=== PATIENT | male | born 1940 | race Caucasian/White ===

== ENCOUNTER → 2021-09-12 14:22 | Outpatient (BNVA) | payer MEDICARE, BC, SELFPAY | PROVIDERS: PCP Internal Medicine; Visit Provider Psychiatry & Neurology Neurology | DX: F09 Unspecified mental disorder due to known physiological condition (principal); D32.9 Benign neoplasm of meninges, unspecified; H93.19 Tinnitus, unspecified ear | CPT/HCPCS: 99212 ==

== ENCOUNTER → 2022-01-03 12:50 | Outpatient (BNVA) | payer MEDICARE, BC, SELFPAY | PROVIDERS: PCP Internal Medicine; Visit Provider Psychiatry & Neurology Neurology | DX: H93.19 Tinnitus, unspecified ear (principal); F09 Unspecified mental disorder due to known physiological condition; D32.9 Benign neoplasm of meninges, unspecified | CPT/HCPCS: 99212 ==

== ENCOUNTER → 2022-04-16 13:37 | Outpatient (BNVA) | payer MEDICARE, BC, SELFPAY | PROVIDERS: PCP Internal Medicine; Visit Provider Psychiatry & Neurology Neurology | DX: F09 Unspecified mental disorder due to known physiological condition (principal); D32.9 Benign neoplasm of meninges, unspecified; H93.19 Tinnitus, unspecified ear; Z79.899 Other long term (current) drug therapy | CPT/HCPCS: 99212 ==

== ENCOUNTER → 2022-05-29 13:32 | Outpatient (BNVA) | payer MEDICARE, BC, SELFPAY | PROVIDERS: PCP Internal Medicine; Visit Provider Psychiatry & Neurology Neurology | DX: F09 Unspecified mental disorder due to known physiological condition (principal); D32.9 Benign neoplasm of meninges, unspecified; H93.19 Tinnitus, unspecified ear | CPT/HCPCS: Q3014 ==

== ENCOUNTER → 2022-07-23 13:47 | Outpatient (BNVA) | payer MEDICARE, BC, SELFPAY | PROVIDERS: PCP Internal Medicine; Visit Provider Psychiatry & Neurology Neurology | DX: F09 Unspecified mental disorder due to known physiological condition (principal); D32.9 Benign neoplasm of meninges, unspecified; H93.19 Tinnitus, unspecified ear | CPT/HCPCS: 99212 ==

== ENCOUNTER 2023-12-23 10:06 | Outpatient (REF) | payer MEDICARE, BC, SELFPAY ==
[2023-12-23 11:46] LABS: Erythrocyte Sedimentation Rate 10 MM/HR (0-15)
[2023-12-23 11:49] LABS: Anion Gap 12 (12-20); Blood Urea Nitrogen 35 mg/dL (9-16); Calcium 9.2 mg/dL (8.4-10.2); Carbon Dioxide 28 mmol/L (22-29); Chloride 106 mmol/L (96-108); Estimated Glomerular Filt Rate > 60; Glucose Random 79 mg/dL (60-115); Potassium 4.6 mmol/L (3.3-5.1); Sodium 141 mmol/L (135-145)
[2023-12-23 11:58] LABS: Syphilis Screen Nonreactive (Nonreactive)
[2023-12-25 06:58] LABS: Lyme Abs Screen <0.90 index
== END 2023-12-23 10:07 | disposition home or self-care (01) ==
LOC: HO.LAB 10:06
PROVIDERS: Visit Provider Psychiatry & Neurology Neurology
DX: G93.40 Encephalopathy, unspecified (principal)
CPT/HCPCS: 36415; 80048; 82607; 82746; 85652; 86617; 86618; 86780

== ENCOUNTER 2024-02-09 07:42 | Outpatient (REF) | payer MEDICARE, BC, SELFPAY ==
--- NOTE | ~2024-02-09 | MR_ITS ---
EXAMINATION: MR BRAIN WITHOUT AND WITH CONTRAST CLINICAL INFORMATION: Encephalopathy COMPARISON: None available. TECHNIQUE: Multiplanar, multisequence MRI of the brain was obtained before and after the intravenous administration of 7 mL of Gadavist. FINDINGS: There is a homogeneously enhancing extra-axial mass along the left aspect of the falx measuring 8 x 6 x 8 mm (AP x TV x CC). Mild demonstrates diffuse susceptibility artifact compatible with calcifications. No intra-axial enhancement identified. No acute intracranial hemorrhage or infarct. Scattered and confluent periventricular and deep white matter T2/FLAIR hyperintensities, nonspecific however commonly seen with small vessel ischemic disease. No midline shift or hydrocephalus. No acute extra-axial fluid collections. The osseous structures are unremarkable. The pituitary gland, pineal gland and remaining midline structures are unremarkable. Sequela bilateral lens replacement. Otherwise, no orbital pathology. The paranasal sinuses and mastoid air cells are clear. MR/MR head/brain wo/w con IMPRESSION: -No acute intracranial abnormalities. -Chronic microangiopathy. -Incidentally noted 8mm left parafalcine mass most consistent with a meningioma.
[2024-02-09] MEDS: gadobutroL 7.5 ML VIAL IVPUSH (08:36)
== END 2024-02-09 07:43 | disposition home or self-care (01) ==
LOC: HO.MRI 07:42
PROVIDERS: PCP Internal Medicine; Visit Provider Psychiatry & Neurology Neurology
DX: G93.40 Encephalopathy, unspecified (principal)
CPT/HCPCS: 70553; A9585

== ENCOUNTER 2025-04-12 12:17 | Outpatient (AMB) | payer MEDICARE, BC, SELFPAY ==
--- NOTE | 2025-04-12 12:22 | MHC.OFFVIS ---
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 He also complained of constant head pressure and pain and machinery type noise in his head. He was here with his [id number]. He was doing okay. He still had the noise in his head. Memory was stable. Mood was okay, but he did not like leaving the house. No falls. Sleep was okay. [facility] Medical History Anxiety Delusion of foul odor Dementia Depression Diabetes Hearing loss HTN (hypertension) Hyperlipidemia Meningioma Surgical History No history of previous surgery Family History Father Cancer Mother Diabetes Social History Household Members: Spouse Household Members Other:: Alcohol intake: never Patient Tobacco Use Status: Never used Tobacco Review of Systems Const Denies chills, Denies daytime sleepiness, Denies difficulty sleeping, Denies fatigue, Denies fever(s), Denies frequent falls, Denies headache(s), Denies increased appetite, Denies poor appetite, Denies snoring, Denies weakness, Denies weight gain and Denies weight loss Eyes Denies loss of vision ENT Denies vertigo, Denies dizziness and Denies headache(s) Card Denies chest pain at rest, Denies chest pain with activity, Denies syncope, Denies leg edema and Denies palpitations Resp Denies snoring GI Denies constipation, Denies heartburn, Denies diarrhea and Denies nausea Denies urinary frequency, Denies urinary incontinence and Denies urinary urgency Musc Denies abnormal gait, Denies numbness and Denies tingling Skin/Breast Denies dry skin and Denies rash Neuro Denies abnormal gait, Denies vertigo, Denies dizziness, Denies syncope, Denies frequent falls, Denies headache(s), Denies lack of coordination, Denies loss of vision, Reports memory loss, Denies numbness, Denies restless legs, Denies seizure-like activity, Denies tingling, Denies paresthesias, Denies tremor(s) and Denies weakness Psych Denies anxiety, Denies depression, Denies auditory hallucinations, Reports memory loss, Denies visual hallucinations and Denies suicidal ideation Endo Denies fatigue and Denies palpitations Physical Exam Const Other: General Appearance:? normal, in no acute distress. Skin:? no rashes, no significant birthmarks. Heart:? S1, S2 normal, no murmurs. Lungs:? clear anteriorly and posteriorly. Extremities:? no edema. Psych:? alert, cooperative with exam. Neuro Other: Mental Status:?Alert and awak with normal sp speech, fluency, and flat affect. MMS is 16. He is able to tell me his age, birthday, and that he is here with his [id number]. Cranial Nerves:?Pupils are equal, round and reactive to light. External occular muscles are intact. Visual cheng are full. Face is symmetrical. Facial sensations are normal. Tongue is midline. Palate elevates symmetrically. Shoulder shrugging is normal. Hearing to bedside conversation is normal. Motor Examination:?DTRs are trace with flexor plantars. Sensory Exam:?....? Coordination:?No ataxia,?no titubation.? Gait Exam: Within normal limits. Cerebellar Signs:?[id number] is okay. Extrapyramidal System:?No tremor, rigidity with normal facial expressions.? Pronator Drift:?Not present.? Involuntary Movements:?No tremors seen.? Speech:?Normal.? Results Reviewed Results Reviewed: [place] [facility] [place]: Mild to mod atrophy, minimal MVD, small left interhemispheric meningioma Assessment & Plan Assessment & Plan (1) Alzheimer dementia: Code(s): G30.9 - Alzheimer's disease, unspecified; F02.80 - Dementia in other diseases classified elsewhere, unspecified severity, without behavioral disturbance, psychotic disturbance, mood disturbance, and anxiety Category: Medical Qualifiers: Alzheimer's disease onset: unspecified onset Dementia severity: unspecified severity Dementia behavioral or psychological symptom: unspecified whether behavioral, psychotic, or mood disturbance or anxiety Qualified Code(s): G30.9 - Alzheimer's disease, unspecified; F02.80 - Dementia in other diseases classified elsewhere, unspecified severity, without behavioral disturbance, psychotic disturbance, mood disturbance, and anxiety Plan: Continue memantine 10mg 1 tablet twice a day. Continue sertraline 50mg 1 tablet daily. Continue quetiapine 25mg 1 tablet at bedtime. (2) Tinnitus: Code(s): H93.19 - Tinnitus, unspecified ear Category: Medical Qualifiers: Laterality: unspecified laterality Qualified Code(s): H93.19 - Tinnitus, unspecified ear Plan: Continue clonazepam 0.5mg (3) Meningioma: Code(s): D32.9 - Benign neoplasm of meninges, unspecified Category: Medical Plan . Coding Level of Care Code Est Pt Level 4 (42869) Diagnoses Alzheimer's dementia, unspecified dementia severity, unspecified timing of dementia onset, unspecified whether behavioral, psychotic, or mood disturbance or anxiety G30.9; F02.80 Alzheimer's disease onset: unspecified onset Dementia severity: unspecified severity Dementia behavioral or psychological symptom: unspecified whether behavioral, psychotic, or mood disturbance or anxiety Tinnitus, unspecified laterality H93.19 Laterality: unspecified laterality Meningioma D32.9
--- OUTSIDE RECORDS SUMMARY | 2025-04-12 13:17 | XMS_ITS | Patient Health Record ---
Author Organization [facility] [address] Address [address] [place] [address] Care Team Providers Care Mathematical Engineer Name Role Phone CESAR MCDONNELL Unavailable [phone] JESSICA JUAREZ Unavailable [phone] ADAIRDIXIE Unavailable [phone] KELL CASTRO Unavailable [phone] MIKE RODRIGUEZ Unavailable [phone] Allergies Allergen (clinical drug ingredient) Drug/Non Drug Allergy documented on EMR Reaction Allergy Type Onset Date Status METOPR (uncoded) Unknown Allergy Act judy lisinopril Lisinopril COUGH Drug Allergy Activ e metoprolol Metoprolol Tartrate BACK PAIN AN D KNEE PAIN Drug Allergy Active simvastatin Simvastatin MYALGIA Drug Allergy Act judy Results Component Value Reference Range Notes Hemoglobin [id number] (Not y et reviewed by provider) Interpretation: Performing Lab:[facility], [address] [facility], Phone - [phone], Director - Esequiel Notes/Report: Clinical Information:SRC: Hemoglobin A1c 6.3 4.8-5.6 % . Prediabetes: 5.7 - 6.4 Diabetes: >6.4 Glycemic control for adults with diabetes: <7.0 CBC With Differential/Platel et-[id number] (Not yet reviewed by provider) Interpretation: Performing Lab:[facility], [address] [facility], [place], Phone - [phone], Director - Esequiel Notes/Report: Clinical Information:SRC: WBC 9.9 3.4-10.8 x10E3/uL RBC 4.27 4.14-5.80 x10E6/uL Hemoglobin 13.0 13.0-17.7 g/dL Hematocrit 40.9 37.5-51.0 % MCV 96 79-97 fL MCH 30.4 26.6-33.0 pg MCHC 31.8 31.5-35.7 g/dL RDW 13.7 11.6-15.4 % Platelets 250 150-450 x10E3/uL Neutrophils 67 Not Estab. % Lymphs 20 Not Estab. % Monocytes 6 Not Estab. % Eos 5 Not Estab. % Basos 1 Not Estab. % Neutrophils (Absolute) 6.7 1.4-7.0 x10E3/uL Lymphs (Absolute) 2.0 0.7-3.1 x10E3/uL Monocytes(Absolute) 0.6 0.1-0.9 x10E3/uL Eos (Absolute) 0.5 0.0-0.4 x10E3/uL Baso (Absolute) 0.1 0.0-0.2 x10E3/uL Immature Granulocytes 1 Not Estab. % Immature Grans (Abs) 0.1 0.0-0.1 x10E3/uL C-Reactive Protein, Cardiac- [id number] (Not yet reviewed by provider) Interpretation: Performing Lab:[facility] [place], [address] [place] [address], [place], Phone - [phone], Director - [facility] Notes/Report: Clinical Information:SRC: C-Reactive Protein, Cardiac 62.73 0.00-3.00 mg/L Results confirmed on dilution. Relative Risk for Future Cardiovascular Event Low <1.00 Average 1.00 - 3.00 High >3.00 Mycoplasma pneu. IgG/IgM Abs -[id number] (Not yet reviewed by provider) Interpretation: Performing Lab:[facility] [place], [address] [facility], [place], Phone - [phone], Director - MDJoy Notes/Report: Clinical Information:SRC: M pneumoniae IgG Abs 2726 0-99 U/mL Negative: <100 Indeterminate: 100 - 320 Positive: >320 The reference interval established is intended as a baseline only. Values >100 may indicate a recent infection with Mycoplasma pneumoniae and need to be confirmed either by a positive IgM result and/or an additional specimen drawn 2-4 weeks later showing a significant increase in antibody levels. M pneumoniae IgM Abs <770 0-769 U/mL Negative <770 Clinically significant amount of M. pneumoniae antibody not detected. Low Positive 770 - 950 M. pneumoniae specific IgM presumptively detected. It is recommended that another sample be collected 1-2 weeks later to assure reactivity. Positive >950 Highly significant amount of M. pneumoniae specific IgM antibody detected. Legionella pneumophila Abs.- [id number] Reviewed date:04/12/2025 12:52:58 PM Interpretation: Performing Lab:[address], Phone - [phone], Director - Esequiel Notes/Report: Clinical Information:SRC: Legionella pneumophila Abs. Non Reactive Non Reactive This is a qualitative assay that detects total antibodies (IgG/IgM/IgA) to L. pneumophila Groups 1-6 by EIA method. This assay cannot differentiate between previous exposure/infection and current infection. Serological testing is not recommended for diagnosis. Per current recommendations, culture of lower respiratory secretions and/or the Legionella urinary antigen test should be used for diagnosis of infection with Legionella. Streptococcus pneumoniae Ag- [id number] Reviewed date:04/12/2025 12:53:07 PM Interpretation: Performing Lab:[facility] [address], Phone - [phone], Director - Esequiel Notes/Report: Clinical Information:SRC: Specimen Source Urine Streptococcus pneumoniae Ag Negative Negative Body Fluid Culture, Sterile Not indicated. Organism ID Not indicated. Please Note: [employer] standards require a culture to be performed on CSF specimens submitted for bacterial antigen testing. (CAP [id number]) Urine specimens will not be cultured. UA/M w/rflx Culture, Routine -[id number] Reviewed date:04/12/2025 12:53:07 PM Interpretation: Performing Lab:[facility], Phone - [phone], Director - Esequiel Notes/Report: Clinical Information:SRC: Clinical Information:SRC: Specific [place] 1.019 1.005-1.030 pH 5.5 5.0-7.5 Urine-Color Yellow Yellow Appearance Clear Clear WBC Esterase Negative Negative Protein Trace Negative/Trace Glucose Negative Negative Ketones Negative Negative Occult Blood Negative Negative Bilirubin Negative Negative Urobilinogen,Semi-Qn 0.2 0.2-1.0 mg/dL Nitrite, Urine Negative Negative Microscopic Examination Micr oscopic follows if indicated. Microscopic Examination See below: Micr oscopic was indicated and was performed. Urinalysis Reflex This speci men will not reflex to a Urine Culture. WBC 0-5 0 - 5 /hpf RBC 0-2 0 - 2 /hpf Epithelial Cells (non renal) 0-10 0 - 10 /hpf Casts None seen None seen /lpf Bacteria None seen None seen/Few CBC/Diff Ambiguous Default Reviewed date:04/03/2025 07:56:46 AM Interpretation: Performing Lab:[facility] [place], [address] [facility] [address], [place], Phone - [phone], Director - Esequiel Notes/Report: WBC 13.7 3.4-10.8 x10E3/uL RBC 4.67 4.14-5.80 x10E6/uL Hemoglobin 14.2 13.0-17.7 g/dL Hematocrit 43.8 37.5-51.0 % MCV 94 79-97 fL MCH 30.4 26.6-33.0 pg MCHC 32.4 31.5-35.7 g/dL RDW 13.7 11.6-15.4 % Platelets 179 150-450 x10E3/uL Neutrophils 70 Not Estab. % Lymphs 19 Not Estab. % Monocytes 9 Not Estab. % Eos 1 Not Estab. % Basos 0 Not Estab. % Neutrophils (Absolute) 9.7 1.4-7.0 x10E3/uL Lymphs (Absolute) 2.6 0.7-3.1 x10E3/uL Monocytes(Absolute) 1.2 0.1-0.9 x10E3/uL Eos (Absolute) 0.1 0.0-0.4 x10E3/uL Baso (Absolute) 0.1 0.0-0.2 x10E3/uL Immature Granulocytes 1 Not Estab. % Immature Grans (Abs) 0.1 0.0-0.1 x10E3/uL Hematology Comments: A hand-written panel/profile was received from your office. In accordance with the [facility] Ambiguous Test Code Policy dated February 2003, we have assigned CBC with Differential/Platelet, Test Code #[id number] to this request. If this is not the testing you wished to receive on this specimen, please contact the [facility] Client Inquiry/ Technical Services Department to clarify the test order. We appreciate your business. Comp. Metabolic Panel (14)-3 Reviewed date:04/03/2025 07:56:24 AM Interpretation: Performing Lab:[facility], [address], [place], Phone - [phone], Director - Esequiel Notes/Report: Glucose 125 70-99 mg/dL BUN 29 8-27 mg/dL Creatinine 1.57 0.76-1.27 mg/dL eGFR 43 >59 mL/min/1.73 BUN/Creatinine Ratio 18 10-24 Sodium 141 134-144 mmol/L Potassium 4.2 3.5-5.2 mmol/L Chloride 102 96-106 mmol/L Carbon Dioxide, Total 22 20-29 mmol/L Calcium 8.9 8.6-10.2 mg/dL Protein, Total 6.7 6.0-8.5 g/dL Albumin 4.1 3.7-4.7 g/dL Globulin, Total 2.6 1.5-4.5 g/dL Bilirubin, Total 0.9 0.0-1.2 mg/dL Alkaline Phosphatase 84 44-121 IU/L AST (SGOT) 14 0-40 IU/L ALT (SGPT) 14 0-44 IU/L Ambig Abbrev CMP14 Default A hand-written panel/profile was received from your office. In accordance with the [facility] Ambiguous Test Code Policy dated February 2003, we have completed your order by using the closest currently or formerly recognized AMA panel. We have assigned Comprehensive Metabolic Panel (14), Test Code #[id number] to this request. If this is not the testing you wished to receive on this specimen, please contact the [facility] Client Inquiry/Technical Services Department to clarify the test order. We appreciate your business. [facility]PC Hemoglobin A1C Reviewed date:01/02/2025 12:02:50 PM Interpretation:6.1% Performing Lab: Notes/Report: 6.1% CBC/Diff Ambiguous Default Reviewed date:01/04/2025 09:11:32 AM Interpretation: Performing Lab:[facility], [address], [place], Phone - [phone], Director - Esequiel Notes/Report: WBC 9.4 3.4-10.8 x10E3/uL RBC 5.19 4.14-5.80 x10E6/uL Hemoglobin 15.0 13.0-17.7 g/dL Hematocrit 46.6 37.5-51.0 % MCV 90 79-97 fL MCH 28.9 26.6-33.0 pg MCHC 32.2 31.5-35.7 g/dL RDW 13.3 11.6-15.4 % Platelets 196 150-450 x10E3/uL Neutrophils 58 Not Estab. % Lymphs 32 Not Estab. % Monocytes 7 Not Estab. % Eos 3 Not Estab. % Basos 0 Not Estab. % Neutrophils (Absolute) 5.4 1.4-7.0 x10E3/uL Lymphs (Absolute) 3.0 0.7-3.1 x10E3/uL Monocytes(Absolute) 0.6 0.1-0.9 x10E3/uL Eos (Absolute) 0.3 0.0-0.4 x10E3/uL Baso (Absolute) 0.0 0.0-0.2 x10E3/uL Immature Granulocytes 0 Not Estab. % Immature Grans (Abs) 0.0 0.0-0.1 x10E3/uL Hematology Comments: A hand-written panel/profile was received from your office. In accordance with the [facility] Ambiguous Test Code Policy dated February 2003, we have assigned CBC with Differential/Platelet, Test Code #[id number] to this request. If this is not the testing you wished to receive on this specimen, please contact the [facility] Client Inquiry/ Technical Services Department to clarify the test order. We appreciate your business. Comp. Metabolic Panel (14)-3 [id number] Reviewed date:01/04/2025 09:36:28 AM Interpretation: Performing [facility], [address] [facility] [address], [place], Phone - [phone], Director - Esequiel Notes/Report: Glucose 109 70-99 mg/dL BUN 33 8-27 mg/dL Creatinine 1.46 0.76-1.27 mg/dL eGFR 48 >59 mL/min/1.73 BUN/Creatinine Ratio 23 10-24 Sodium 143 134-144 mmol/L Potassium 4.4 3.5-5.2 mmol/L Chloride 104 96-106 mmol/L Carbon Dioxide, Total 21 20-29 mmol/L Calcium 9.1 8.6-10.2 mg/dL Protein, Total 7.0 6.0-8.5 g/dL Albumin 4.3 3.7-4.7 g/dL Globulin, Total 2.7 1.5-4.5 g/dL Bilirubin, Total 0.6 0.0-1.2 mg/dL Alkaline Phosphatase 100 44-121 IU/L AST (SGOT) 19 0-40 IU/L ALT (SGPT) 18 0-44 IU/L Darek Kocallum CMP14 Default A hand-written panel/profile was received from your office. In accordance with the [facility] Ambiguous Test Code Policy dated February 2003, we have completed your order by using the closest currently or formerly recognized AMA panel. We have assigned Comprehensive Metabolic Panel (14), Test Code #[id number] to this request. If this is not the testing you wished to receive on this specimen, please contact the [facility] Client Inquiry/Technical Services Department to clarify the test order. We appreciate your business. Darek Tolbert LP Default Reviewed date:08/31/2024 08:50:23 AM Interpretation: Performing Lab:[facility], [address] [place] [address], Phone - [phone], Director - Esequiel Notes/Report: aDrek Tolbertrev KRISHNAN Default A hand-written panel/profile was received from your office. In accordance with the [facility] Ambiguous Test Code Policy dated February 2003, we have completed your order by using the closest currently or formerly recognized AMA panel. We have assigned Lipid Panel, Test Code #[id number] to this request. If this is not the testing you wished to receive on this specimen, please contact the [facility] Client Inquiry/Technical Services Department to clarify the test order. We appreciate your business. CBC/Diff Ambiguous Default Reviewed date:08/31/2024 08:50:23 AM Interpretation: Performing Lab:[facility], [address] [place] [address], Phone - [phone], Director - MDJodry Notes/Report: WBC 8.8 3.4-10.8 x10E3/uL RBC 4.51 4.14-5.80 x10E6/uL Hemoglobin 13.6 13.0-17.7 g/dL Hematocrit 41.3 37.5-51.0 % MCV 92 79-97 fL MCH 30.2 26.6-33.0 pg MCHC 32.9 31.5-35.7 g/dL RDW 13.0 11.6-15.4 % Platelets 184 150-450 x10E3/uL Neutrophils 63 Not Estab. % Lymphs 27 Not Estab. % Monocytes 7 Not Estab. % Eos 3 Not Estab. % Basos 0 Not Estab. % Neutrophils (Absolute) 5.5 1.4-7.0 x10E3/uL Lymphs (Absolute) 2.3 0.7-3.1 x10E3/uL Monocytes(Absolute) 0.6 0.1-0.9 x10E3/uL Eos (Absolute) 0.2 0.0-0.4 x10E3/uL Baso (Absolute) 0.0 0.0-0.2 x10E3/uL Immature Granulocytes 0 Not Estab. % Immature Grans (Abs) 0.0 0.0-0.1 x10E3/uL Hematology Comments: A hand-written panel/profile was received from your office. In accordance with the [facility] Ambiguous Test Code Policy dated February 2003, we have assigned CBC with Differential/Platelet, Test Code #[id number] to this request. If this is not the testing you wished to receive on this specimen, please contact the [facility] Client Inquiry/ Technical Services Department to clarify the test order. We appreciate your business. Comp. Metabolic Panel (14)-3 [id number] Reviewed date:08/31/2024 09:12:05 AM Interpretation: Performing Lab:[facility], [address] [place] [address], [place], Phone - [phone], Director - Esequiel Notes/Report: Glucose 98 70-99 mg/dL BUN 34 8-27 mg/dL Creatinine 1.36 0.76-1.27 mg/dL eGFR 52 >59 mL/min/1.73 BUN/Creatinine Ratio 25 10-24 Sodium 146 134-144 mmol/L Potassium 4.9 3.5-5.2 mmol/L Chloride 109 96-106 mmol/L Carbon Dioxide, Total 24 20-29 mmol/L Calcium 8.8 8.6-10.2 mg/dL Protein, Total 6.5 6.0-8.5 g/dL Albumin 4.1 3.7-4.7 g/dL Globulin, Total 2.4 1.5-4.5 g/dL Bilirubin, Total 0.4 0.0-1.2 mg/dL Alkaline Phosphatase 92 44-121 IU/L AST (SGOT) 20 0-40 IU/L ALT (SGPT) 19 0-44 IU/L Lipid Panel-[id number] Reviewed date:08/31/2024 09:11:57 AM Interpretation: Performing [facility], [address] [facility], Phone - [phone], Director - Esequiel Notes/Report: Cholesterol, Total 147 100-199 mg/dL Triglycerides 116 0-149 mg/dL HDL Cholesterol 38 >39 mg/dL VLDL Cholesterol Oscar 21 5-40 mg/dL LDL Chol Calc (NIH) 88 0-99 mg/dL Darek Keenan CMP14 Default A hand-written panel/profile was received from your office. In accordance with the [facility] Ambiguous Test Code Policy dated February 2003, we have completed your order by using the closest currently or formerly recognized AMA panel. We have assigned Comprehensive Metabolic Panel (14), Test Code #[id number] to this request. If this is not the testing you wished to receive on this specimen, please contact the [facility] Client Inquiry/Technical Services Department to clarify the test order. We appreciate your business. Urinalysis, Complete-[id number] Reviewed date:08/31/2024 08:50:23 AM Interpretation: Performing [facility], [address] [facility], [place], Phone - [phone], Director - Esequiel Notes/Report: Specific [place] 1.020 1.005-1.030 pH 6.5 5.0-7.5 Urine-Color Yellow Yellow Appearance Clear Clear WBC Esterase Negative Negative Protein Negative Negative/Trace Glucose Negative Negative Ketones Negative Negative Occult Blood Negative Negative Bilirubin Negative Negative Urobilinogen,Semi-Qn 0.2 0.2-1.0 mg/dL Nitrite, Urine Negative Negative Microscopic Examination Micr oscopic follows if indicated. Microscopic Examination See below: Micr oscopic was indicated and was performed. WBC None seen 0 - 5 /hpf RBC None seen 0 - 2 /hpf Epithelial Cells (non renal) None seen 0 - 10 /hpf Casts None seen None seen /lpf Bacteria None seen None seen/Few Reason For Referral No Information Medications Medication SIG (Take, Route, Frequency, Duration) Notes Start Date End Date Status Memantine HCl 10 MG 1 tablet Orally Twice a day; Duration: 90 days Active dilTIAZem HCl ER 120 MG 1 capsule Orally Twice a day Active Eliquis 5 MG 1 tab Orally bid 2.5mg bid 09/14/23 Active Tamsulosin HCl 0.4 MG 1 capsule Orally Once a day; Duration: 30 day(s) Active Atorvastatin Calcium 10 MG TAKE 1 TABLET BY MOUTH EVERYDAY AT BEDTIME; Duration: 90 Active QUEtiapine Fumarate 25 MG TAKE 1 TABLET BY MOUTH EVERY DAY AT BEDTIME FOR 30 DAYS; Duration: 90 Active clonazePAM 0.5 MG 1/2 pill prn anxiety Orally twice a day; Duration: 30 days 03/15/2025 Active Sertraline HCl 100 MG TAKE 1 TABLET BY MOUTH EVERY DAY; Duration: 90 days Active Immunizations Vaccine Route Administration Date Status Comme nts influenza IM Intramuscular 05/23/2022 Administered Influenza, high dose seasonal IM Intramuscular 05/17/2019 Administered Social History Tobacco Use: Social History Observation Description Date Details (start date - stop date) Never Smoker NA - NA Tobacco Use/Smoking Question Answer Notes Are you a nonsmoker Alcohol Screen (Audit-C) Question Answer Notes Did you have a drink containing alcohol in the p ast year? 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 confirmed Problem Vitamin D deficiency (28649262) Vitamin D deficiency, unspecified (E55.9) Active confirmed Problem Hyperlipidemia (44386206) Hyperlipidemia, unspecified (E78.5) Active confirmed Problem Moderate recurrent major depression (97825020) Major depressive disorder, recurrent, moderate (F33.1) Active confirmed Problem Anxiety disorder (917559021) Anxiety disorder, unspecified (F41.9) Active confirmed Problem Alzheimer's disease with early onset (486416611) Alzheimer's disease with early onset (G30.0) Active confirmed Problem Bilateral tinnitus (0343061226992) Tinnitus, bilateral (H93.13) Active confirmed Problem Paroxysmal atrial fibrillation (188423548) Paroxysmal atrial fibrillation (I48.0) Active confirmed Problem Postoperative hypertension (7459048130099) Postprocedural hypertension (I97.3) Active confirmed Problem Constipation (66034357) Constipation, unspecified (K59.00) Active confirmed Problem Adult health examination (393541773) Encounter for general adult medical examination without abnormal findings (Z00.00) Active confirmed Problem Abnormal blood pressure (72644560) Encounter for examination of blood pressure with abnormal findings (Z01.31) Active confirmed Problem Diabetes mellitus screening (652320750) Encounter for screening for diabetes mellitus (Z13.1) Active confirmed Problem Essential hypertension (69070551) Essential hypertension (I10) Active confirmed Problem Hyperlipidaemia (65644437) Hyperlipidemia, unspecified hyperlipidemia type (E78.5) Active confirmed Problem Atrial fibrillation (12869147) Atrial fibrillation, unspecified type (I48.91) Active confirmed Problem Memory loss (72825951) Memory loss (R41.3) Active confirmed Problem Annual health maintenance examination (26887426) Annual physical exam (Z00.00) Active confirmed Problem Insomnia (179541799) Insomnia, unspecified type (G47.00) Active confirmed Problem Syncope and collapse (007280839) Syncope, unspecified syncope type (R55) Active confirmed Problem Chronic renal failure syndrome (60288742) Chronic kidney disease, unspecified CKD stage (N18.9) Active confirmed Problem Use of anticoagulation (359900184) Chronic anticoagulation (Z79.01) Active confirmed Problem Type II diabetes mellitus without complication (832419373) Type 2 diabetes mellitus without complication, without long-term current use of insulin (E11.9) Active confirmed Problem Chronic kidney disease stage 3A (107835154) Stage 3a chronic kidney disease (N18.31) Active confirmed Problem Amnesia (51246130) Memory change (R41.3) Active confirmed Problem Chronic kidney disease stage 3B (disorder) (368971008) Stage 3b chronic kidney disease (N18.32) Active confirmed Problem Leukocytosis (498123031) Leukocytosis, unspecified (D72.829) Active confirmed Problem C-reactive protein abnormal (883925329) CRP elevated (R79.82) Active confirmed Problem Benign prostatic hypertrophy without outflow obstruction (558870206) BPH without urinary obstruction (N40.0) Active confirmed Problem Generalized anxiety disorder (70560429) Anxiety, generalized (F41.1) Active confirmed Problem Dementia (40106641) Advancing dementia (F03.90) Active confirmed Vital Signs Heart Rate 76 /min 04/05/2025 Oximetry 96 % 04/05/2025 Blood pressure diastolic 50 mm Hg 04/05/2025 Height 72 in 04/05/2025 Blood pressure systolic 110 mm Hg 04/05/2025 Weight 172 lbs 04/05/2025 BMI 23.32 kg/m2 04/05/2025 Encounters Encounter Location Date Provider Diagnosis [facility] [address], [place] 09/05/2024 JESSICA JUAREZ Annual physical exam Z00.00 ; Chronic kidney disease, unspecified CKD stage N18.9 and Hyperlipidemia, unspecified hyperlipidemia type E78.[address] [facility] [address], [place] 01/02/2025 CESAR MCDONNELL Screening for diabet es mellitus Z13.1 ; Paroxysmal atrial fibrillation I48.0 ; Tinnitus, bilateral H93.13 ; Chronic anticoagulation Z79.01 ; Anxiety disorder, unspecified F41.9 ; Depression, unspecified F32.A ; Type 2 diabetes mellitus without complication, without long-term current use of insulin E11.9 ; Stage 3a chronic kidney disease N18.31 ; BPH without urinary obstruction N40.0 ; Advancing dementia F03.90 ; Essential hypertension I10 and Encounter for examination of blood pressure with abnormal findings Z01.[address] [facility] [address] [place], [place] 04/05/2025 CESAR MCDONNELL Leukocytosis, unspec ified D72.829 ; Atrial fibrillation, unspecified type I48.91 ; Alzheimer's disease with early onset G30.0 ; Bilateral tinnitus H93.13 ; Stage 3b chronic kidney disease N18.32 ; Anxiety, generalized F41.1 ; BPH without urinary obstruction N40.0 and Encounter for examination of blood pressure without abnormal findings Z01.30 [facility] [address] [address] 04/14/2024 KELL CASTRO [facility] [address] [address] 06/09/2024 JESSICA JUAREZ [facility] [address] [place], [place] 06/17/2024 JESSICA JUAREZ [facility] [address] [place], [place] 06/27/2024 DIXIE BORRERO [facility] [address] [place], [place] 08/22/2024 TALAL JUAREZ [facility] [address] [place] [address] 08/26/2024 TALAL JUAREZ [facility] [address] [place] [address] 08/29/2024 TALAL JUAREZ [facility] [address] [place] [address] 10/17/2024 TALAL JUAREZ [facility] [address] [place] [address] 11/22/2024 TALAL JUAREZ [facility] [address] [place] [address] 02/14/2025 CESAR KECIA [facility] [address] [place] [address] 03/15/2025 CESAR KECIA [facility] [address] [facility] [place] [address] 04/11/2025 CESAR KECIA [facility] [address] [facility] [place] [address] 04/12/2025 MIKE JENNIFER [facility] [address] [facility] [address] [place] [address] 01/10/2025 CESAR KECIA Assessments Encounter Date Diagnosis (ICD Code) Assessment Notes Treatment Notes Treatment Clinical Notes Section Notes 09/05/2024 Annual physical exam (ICD-10 - Z00.00) Patient seen and examined. Comprehensive discussion was done on the following. 1. Nutrition: It is important to follow a healthy diet based on lots of vegetables and legumes and good fat. Avoid processed food and processed carbohydrates. Learn to prepare your own meals. Learn to read labels and avoid high fructose corn syrup, processed chemicals added to increase shelf life and preprepared meals. Avoid fast foods. Learn to eat slowly and plan meals for a week. Try to count calories and be mindful off daily calorie intake. Get into the habit of keeping an eye on your weight by using an appropriate scale. Learn to log exercise and discussed fitness Apps like [employer] which can help keep log off calories taken versus calories burned. Local food should be preferred. Discussed Dirty Dozen Versus Clean Fifteen. Discussed healthy supplements like fish oil, Tumeric, Curcumin, Melatonin, Resveratrol, Probiotics, Vitamin-D, Alpha-Lipoic acid, Vitamin-D and coconut oil. 2. It is important to exercise regularly. Is a good habit to walk at least 30-45 minutes a day. Gentle weightlifting with standard precautions to protect the back. Finding activity like cycling or hiking and get into the habit of engaging in it. Stretching before and after the exercises important. It is also important to contact me if there are any problems like shortness of breath, chest pain, back pain and joint or muscle pain associated with the exercise. 3. Discussed age appropriate screening guidelines. Colonoscopy needs to start at age 50 with stool for occult blood as appropriate. There is a new test that can test for genetic abnormalities in the stool sample. This would not replace a colonoscopy but could be used as a screening tool for patients who do not want a colonoscopy. We discussed the importance of early detection of colon cancer. 4. Discussed current PSA screening. PSA screening can be done in most patients between age 50 and 65. However early detection of prostate cancer needs to carefully be balanced with complications with treatment. These include incontinence, impotence etc. Each patient should decide if they would like to have this test. 5. Discussed safe driving and no use of smart phone while driving 6. Age-appropriate immunizations were discussed. A tetanus booster is needed every 10 years. Flu vaccine is recommended every year just before the start of the flu season. Shingles vaccine is recommended after age 50 but not all insurances cover it. Pneumonia vaccine is given after age 65 unless there are certain comorbidities for which it is started earlier. 7. Diagnostic labs were discussed. These could include CBC CMP and lipids with fasting blood glucose and insulin levels. Vitamin D and hemoglobin A1c testing might be appropriate. 8. Patient's daughter will get him to have flu and RSV vaccine. He will need shingles vaccine in the summer. He he will need activities of daily living monitored along with kidney function and sodium levels. He has been advised to keep his Lifeline on which she was not wearing today. He will follow-up for physical in 4 months 01/02/2025 Paroxysmal atrial fibrillation (ICD-10 - I48.0) Iam is a 84-year-old male present today for follow-up. #Up-to-date on Medicare wellness visit 08/2024. # Vaccines: Up-to-date on influenza, RSV and shingles. #Chronic tinnitus: Patient reports chronic buzzing sound in his ears. Followed by neurology. Unfortunately no further treatment. #Paroxysmal A-fib: On anticoagulation of Eliquis 2.5 mg twice daily. This dose was decreased from 5 mg due to worsening mentation leading to possible falls. Followed by cardiology with last follow-up 02/2024 and next follow-up scheduled 02/2025. Continue diltiazem extended release 120 mg twice daily. #Anxiety #depression: Lost his approximately a year ago. Managed on sertraline 100 mg p.o. once daily and clonazepam as needed. Overall doing well on this medication. #Diabetes: Elevated glucose of 109 with in office A1c of 6.1%. Stable. # CKD stage 3: stable GFR. Will monitor. #BPH: Managed on tamsulosin 0.4 mg p.o. once daily. #Dementia: Followed by neurology every 6 months. Managed on memantine 10 mg twice daily, quetiapine 25 mg at bedtime. #Hypertension: Blood pressure on the softer side, 112/50. Blood pressure has gradually decreased over the past few years after review of vitals. Recommend monitoring blood pressure twice daily at home for the next week and keeping a blood pressure log. Advised szecorhg-qg-osf to call office in 1 week to review blood pressures. Would consider discontinuing clonazepam due to indirect effect on blood pressure and risk of falls. Would recommend calling cardiology for possible trial of decreasing diltiazem. # Patient lives at home and level with son. Has [employer] eldercare services including meals and laundry. Requires assistance with ADLs. No longer driving. Patient has daily repetitive behaviors including checking the mail. Tobyycji-oo-ynv states he lacks hobbies and will often times watch TV or nap throughout the day. Denies worsening depression, SI/HI. Virrzvsi-xj-txf reports cameras outside the house for extra precaution surveillance. Patient stable at this time but will continue to monitor cognitive decline. # Plan to follow-up in 3 months. Will repeat labs. All questions answered to patients satisfaction. Patient verbalized understanding of diagnosis and treatments explained. To call sooner prior to next visit it any questions/concerns arise. Case discussed with collaborating physician Dr. Juarez who reviewed the assessment and plan. Chart, medications, labs, vital signs reviewed. Dictation was accomplished with the use of [employer] voice recognition software, prone to medical misidentifications and grammatical errors. This is unintentional and the practitioner does try to identify and correct these, but some could still be present. Please do not hesitate to contact practitioner for clarification. 01/02/2025 Screening for diabetes mellitus (ICD-10 - Z13.1) Iam is a 84-year-old male present today for follow-up. #Up-to-date on Medicare wellness visit 08/2024. # Vaccines: Up-to-date on influenza, RSV and shingles. #Chronic tinnitus: Patient reports chronic buzzing sound in his ears. Followed by neurology. Unfortunately no further treatment. #Paroxysmal A-fib: On anticoagulation of Eliquis 2.5 mg twice daily. This dose was decreased from 5 mg due to worsening mentation leading to possible falls. Followed by cardiology with last follow-up 02/2024 and next follow-up scheduled 02/2025. Continue diltiazem extended release 120 mg twice daily. #Anxiety #depression: Lost his approximately a year ago. Managed on sertraline 100 mg p.o. once daily and clonazepam as needed. Overall doing well on this medication. #Diabetes: Elevated glucose of 109 with in office A1c of 6.1%. Stable. # CKD stage 3: stable GFR. Will monitor. #BPH: Managed on tamsulosin 0.4 mg p.o. once daily. #Dementia: Followed by neurology every 6 months. Managed on memantine 10 mg twice daily, quetiapine 25 mg at bedtime. #Hypertension: Blood pressure on the softer side, 112/50. Blood pressure has gradually decreased over the past few years after review of vitals. Recommend monitoring blood pressure twice daily at home for the next week and keeping a blood pressure log. Advised gjgiddtk-wz-gck to call office in 1 week to review blood pressures. Would consider discontinuing clonazepam due to indirect effect on blood pressure and risk of falls. Would recommend calling cardiology for possible trial of decreasing diltiazem. # Patient lives at home and level with son. Has [employer] elder[employer] services including meals and laundry. Requires assistance with ADLs. No longer driving. Patient has daily repetitive behaviors including checking the mail. Wuufauji-ky-rnt states he lacks hobbies and will often times watch TV or nap throughout the day. Denies worsening depression, SI/HI. Fiomvyin-kp-oro reports cameras outside the house for extra precaution surveillance. Patient stable at this time but will continue to monitor cognitive decline. # Plan to follow-up in 3 months. Will repeat labs. All questions answered to patients satisfaction. Patient verbalized understanding of diagnosis and treatments explained. To call sooner prior to next visit it any questions/concerns arise. Case discussed with collaborating physician Dr. Juarez who reviewed the assessment and plan. Chart, medications, labs, vital signs reviewed. Dictation was accomplished with the use of [employer] voice recognition software, prone to medical misidentifications and grammatical errors. This is unintentional and the practitioner does try to identify and correct these, but some could still be present. Please do not hesitate to contact practitioner for clarification. 04/05/2025 Atrial fibrillation, unspecified type (ICD-10 - I48.91) Iam is an 85-year-old male present today for follow-up. #Leukocytosis: Most recent labs revealed WBCs of 13.7, absolute neutrophils of 9.7 and absolute monocytes of 1.2. Patient denies any recent upper respiratory infection, acute cough, shortness of breath, recent corticosteroid use, seasonal allergies. Of note patient was seen recently by the pbx inspector in which his qanxkcay-jl-fqc reports that he was reporting a sore throat. This has since resolved. Denies any fevers. No change in baseline mentation. No medication changes. No changes to urinary stream, no dysuria, urgency or hesitancy. No blood in urine. Lungs clear on auscultation. Patient appears unremarkable on physical exam. Will order blood work to repeat CBC as well as add a urine with reflex culture to rule out UTI, will also add strep pneumo, Legionella and mycoplasma for possible underlying community-acquired pneumonia as source of leukocytosis. Recommend ecbkasjr-fu-awg to take patient's temperature daily at home. Cannot rule out leukemia at this time. Has not had any intentional weight loss however has had a 4 pound weight loss since December. Xfvlinbk-ht-hsd states he has had a normal appetite. Recommend monitoring weight at home and calling the office if patient experiences any weight loss, fevers or any new symptoms suggesting infectious etiology. Vdmnupsa-ce-gol understanding. #CKD: Appears stable. #Tinnitus: Followed by neurology. Seen every 6 months. #Dementia: Memantine 10 mg twice daily and quetiapine 25 at bedtime. #Anxiety: Clonazepam twice daily as needed. #Paroxysmal A-fib: On anticoagulation of Eliquis 2.5 mg twice daily. This dose was decreased from 5 mg due to worsening mentation leading to possible falls. Followed by cardiology with last follow-up 02/2024 and next follow-up scheduled 02/2025. Continue diltiazem extended release 120 mg twice daily. #BPH: Managed on tamsulosin 0.4 mg. # Patient lives at home and level with son. Has [facility] [employer] services including meals and laundry. Requires assistance with ADLs. No longer driving. Patient has daily repetitive behaviors including checking the mail. Npeukion-ah-aia states he lacks hobbies and will often times watch TV or nap throughout the day. Denies worsening depression, SI/HI. Siadyoht-tz-ypa reports cameras outside the house for extra precaution surveillance. Patient stable at this time but will continue to monitor cognitive decline. # Plan to follow-up in 3 months. Will repeat labs. All questions answered to patients satisfaction. Patient verbalized understanding of diagnosis and treatments explained. To call sooner prior to next visit it any questions/concerns arise. Case discussed with collaborating physician Dr. Juarez who reviewed the assessment and plan. Chart, medications, labs, vital signs reviewed. Dictation was accomplished with the use of [employer] voice recognition software, prone to medical misidentifications and grammatical errors. This is unintentional and the practitioner does try to identify and correct these, but some could still be present. Please do not hesitate to contact practitioner for clarification. 04/05/2025 Leukocytosis, unspecified (ICD-10 - D72.829) Iam is an 85-year-old male present today for follow-up. #Leukocytosis: Most recent labs revealed WBCs of 13.7, absolute neutrophils of 9.7 and absolute monocytes of 1.2. Patient denies any recent upper respiratory infection, acute cough, shortness of breath, recent corticosteroid use, seasonal allergies. Of note patient was seen recently by the pbx inspector in which his mbcxhhys-tn-sjo reports that he was reporting a sore throat. This has since resolved. Denies any fevers. No change in baseline mentation. No medication changes. No changes to urinary stream, no dysuria, urgency or hesitancy. No blood in urine. Lungs clear on auscultation. Patient appears unremarkable on physical exam. Will order blood work to repeat CBC as well as add a urine with reflex culture to rule out UTI, will also add strep pneumo, Legionella and mycoplasma for possible underlying community-acquired pneumonia as source of leukocytosis. Recommend efyryjik-xl-teg to take patient's temperature daily at home. Cannot rule out leukemia at this time. Has not had any intentional weight loss however has had a 4 pound weight loss since December. Utzafuan-pm-dgi states he has had a normal appetite. Recommend monitoring weight at home and calling the office if patient experiences any weight loss, fevers or any new symptoms suggesting infectious etiology. Kevjsjwi-xv-gzl understanding. #CKD: Appears stable. #Tinnitus: Followed by neurology. Seen every 6 months. #Dementia: Memantine 10 mg twice daily and quetiapine 25 at bedtime. #Anxiety: Clonazepam twice daily as needed. #Paroxysmal A-fib: On anticoagulation of Eliquis 2.5 mg twice daily. This dose was decreased from 5 mg due to worsening mentation leading to possible falls. Followed by cardiology with last follow-up 02/2024 and next follow-up scheduled 02/2025. Continue diltiazem extended release 120 mg twice daily. #BPH: Managed on tamsulosin 0.4 mg. # Patient lives at home and level with son. Has [facility] eldercare services including meals and laundry. Requires assistance with ADLs. No longer driving. Patient has daily repetitive behaviors including checking the mail. Iviikmsr-eg-ynj states he lacks hobbies and will often times watch TV or nap throughout the day. Denies worsening depression, SI/HI. Gntwxkee-yp-hbg reports cameras outside the house for extra precaution surveillance. Patient stable at this time but will continue to monitor cognitive decline. # Plan to follow-up in 3 months. Will repeat labs. All questions answered to patients satisfaction. Patient verbalized understanding of diagnosis and treatments explained. To call sooner prior to next visit it any questions/concerns arise. Case discussed with collaborating physician Dr. Juarez who reviewed the assessment and plan. Chart, medications, labs, vital signs reviewed. Dictation was accomplished with the use of [employer] voice recognition software, prone to medical misidentifications and grammatical errors. This is unintentional and the practitioner does try to identify and correct these, but some could still be present. Please do not hesitate to contact practitioner for clarification. 04/05/2025 Alzheimer's disease with early onset (ICD-10 - G30.0) Iam is an 85-year-old male present today for follow-up. #Leukocytosis: Most recent labs revealed WBCs of 13.7, absolute neutrophils of 9.7 and absolute monocytes of 1.2. Patient denies any recent upper respiratory infection, acute cough, shortness of breath, recent corticosteroid use, seasonal allergies. Of note patient was seen recently by the pbx inspector in which his bpkepcsl-zv-rfx reports that he was reporting a sore throat. This has since resolved. Denies any fevers. No change in baseline mentation. No medication changes. No changes to urinary stream, no dysuria, urgency or hesitancy. No blood in urine. Lungs clear on auscultation. Patient appears unremarkable on physical exam. Will order blood work to repeat CBC as well as add a urine with reflex culture to rule out UTI, will also add strep pneumo, Legionella and mycoplasma for possible underlying community-acquired pneumonia as source of leukocytosis. Recommend eekjxquf-ff-bcn to take patient's temperature daily at home. Cannot rule out leukemia at this time. Has not had any intentional weight loss however has had a 4 pound weight loss since December. Njczvlve-ke-szj states he has had a normal appetite. Recommend monitoring weight at home and calling the office if patient experiences any weight loss, fevers or any new symptoms suggesting infectious etiology. Scoxkyba-rz-xdr understanding. #CKD: Appears stable. #Tinnitus: Followed by neurology. Seen every 6 months. #Dementia: Memantine 10 mg twice daily and quetiapine 25 at bedtime. #Anxiety: Clonazepam twice daily as needed. #Paroxysmal A-fib: On anticoagulation of Eliquis 2.5 mg twice daily. This dose was decreased from 5 mg due to worsening mentation leading to possible falls. Followed by cardiology with last follow-up 02/2024 and next follow-up scheduled 02/2025. Continue diltiazem extended release 120 mg twice daily. #BPH: Managed on tamsulosin 0.4 mg. # Patient lives at home and level with son. Has [employer] eldercare services including meals and laundry. Requires assistance with ADLs. No longer driving. Patient has daily repetitive behaviors including checking the mail. Ebfhixsd-ew-cai states he lacks hobbies and will often times watch TV or nap throughout the day. Denies worsening depression, SI/HI. Mllzfqjt-sd-rio reports cameras outside the house for extra precaution surveillance. Patient stable at this time but will continue to monitor cognitive decline. # Plan to follow-up in 3 months. Will repeat labs. All questions answered to patients satisfaction. Patient verbalized understanding of diagnosis and treatments explained. To call sooner prior to next visit it any questions/concerns arise. Case discussed with collaborating physician Dr. Juarez who reviewed the assessment and plan. Chart, medications, labs, vital signs reviewed. Dictation was accomplished with the use of [employer] voice recognition software, prone to medical misidentifications and grammatical errors. This is unintentional and the practitioner does try to identify and correct these, but some could still be present. Please do not hesitate to contact practitioner for clarification. 09/05/2024 Chronic kidney disease, unspecified CKD stage (ICD-10 - N18.9) Patient seen and examined. Comprehensive discussion was done on the following. 1. Nutrition: It is important to follow a healthy diet based on lots of vegetables and legumes and good fat. Avoid processed food and processed carbohydrates. Learn to prepare your own meals. Learn to read labels and avoid high fructose corn syrup, processed chemicals added to increase shelf life and preprepared meals. Avoid fast foods. Learn to eat slowly and plan meals for a week. Try to count calories and be mindful off daily calorie intake. Get into the habit of keeping an eye on your weight by using an appropriate scale. Learn to log exercise and discussed fitness Apps like [employer] which can help keep log off calories taken versus calories burned. Local food should be preferred. Discussed D[employer]zen Versus [employer] Fifteen. Discussed healthy supplements like fish oil, Tumeric, Curcumin, Melatonin, Resveratrol, Probiotics, Vitamin-D, Alpha-Lipoic acid, Vitamin-D and coconut oil. 2. It is important to exercise regularly. Is a good habit to walk at least 30-45 minutes a day. Gentle weightlifting with standard precautions to protect the back. Finding activity like cycling or hiking and get into the habit of engaging in it. Stretching before and after the exercises important. It is also important to contact me if there are any problems like shortness of breath, chest pain, back pain and joint or muscle pain associated with the exercise. 3. Discussed age appropriate screening guidelines. Colonoscopy needs to start at age 50 with stool for occult blood as appropriate. There is a new test that can test for genetic abnormalities in the stool sample. This would not replace a colonoscopy but could be used as a screening tool for patients who do not want a colonoscopy. We discussed the importance of early detection of colon cancer. 4. Discussed current PSA screening. PSA screening can be done in most patients between age 50 and 65. However early detection of prostate cancer needs to carefully be balanced with complications with treatment. These include incontinence, impotence etc. Each patient should decide if they would like to have this test. 5. Discussed safe driving and no use of smart phone while driving 6. Age-appropriate immunizations were discussed. A tetanus booster is needed every 10 years. Flu vaccine is recommended every year just before the start of the flu season. Shingles vaccine is recommended after age 50 but not all insurances cover it. Pneumonia vaccine is given after age 65 unless there are certain comorbidities for which it is started earlier. 7. Diagnostic labs were discussed. These could include CBC CMP and lipids with fasting blood glucose and insulin levels. Vitamin D and hemoglobin A1c testing might be appropriate. 8. Patient's daughter will get him to have flu and RSV vaccine. He will need shingles vaccine in the summer. He he will need activities of daily living monitored along with kidney function and sodium levels. He has been advised to keep his Lif[employer] on which she was not wearing today. He will follow-up for physical in 4 months 01/02/2025 Tinnitus, bilateral (ICD-10 - H93.13) Iam is a 84-year-old male present today for follow-up. #Up-to-date on Medicare wellness visit 08/2024. # Vaccines: Up-to-date on influenza, RSV and shingles. #Chronic tinnitus: Patient reports chronic buzzing sound in his ears. Followed by neurology. Unfortunately no further treatment. #Paroxysmal A-fib: On anticoagulation of Eliquis 2.5 mg twice daily. This dose was decreased from 5 mg due to worsening mentation leading to possible falls. Followed by cardiology with last follow-up 02/2024 and next follow-up scheduled 02/2025. Continue diltiazem extended release 120 mg twice daily. #Anxiety #depression: Lost his approximately a year ago. Managed on sertraline 100 mg p.o. once daily and clonazepam as needed. Overall doing well on this medication. #Diabetes: Elevated glucose of 109 with in office A1c of 6.1%. Stable. # CKD stage 3: stable GFR. Will monitor. #BPH: Managed on tamsulosin 0.4 mg p.o. once daily. #Dementia: Followed by neurology every 6 months. Managed on memantine 10 mg twice daily, quetiapine 25 mg at bedtime. #Hypertension: Blood pressure on the softer side, 112/50. Blood pressure has gradually decreased over the past few years after review of vitals. Recommend monitoring blood pressure twice daily at home for the next week and keeping a blood pressure log. Advised hlhhlsjn-ed-eyt to call office in 1 week to review blood pressures. Would consider discontinuing clonazepam due to indirect effect on blood pressure and risk of falls. Would recommend calling cardiology for possible trial of decreasing diltiazem. # Patient lives at home and level with son. Has [employer] services including meals and laundry. Requires assistance with ADLs. No longer driving. Patient has daily repetitive behaviors including checking the mail. Gkvlytzu-si-xny states he lacks hobbies and will often times watch TV or nap throughout the day. Denies worsening depression, SI/HI. Lvxwreim-le-tlu reports cameras outside the house for extra precaution surveillance. Patient stable at this time but will continue to monitor cognitive decline. # Plan to follow-up in 3 months. Will repeat labs. All questions answered to patients satisfaction. Patient verbalized understanding of diagnosis and treatments explained. To call sooner prior to next visit it any questions/concerns arise. Case discussed with collaborating physician Dr. Juarez who reviewed the assessment and plan. Chart, medications, labs, vital signs reviewed. Dictation was accomplished with the use of [employer] voice recognition software, prone to medical misidentifications and grammatical errors. This is unintentional and the practitioner does try to identify and correct these, but some could still be present. Please do not hesitate to contact practitioner for clarification. 09/05/2024 Hyperlipidemia, unspecified hyperlipidemia type (ICD-10 - E78.5) Patient seen and examined. Comprehensive discussion was done on the following. 1. Nutrition: It is important to follow a healthy diet based on lots of vegetables and legumes and good fat. Avoid processed food and processed carbohydrates. Learn to prepare your own meals. Learn to read labels and avoid high fructose corn syrup, processed chemicals added to increase shelf life and preprepared meals. Avoid fast foods. Learn to eat slowly and plan meals for a week. Try to count calories and be mindful off daily calorie intake. Get into the habit of keeping an eye on your weight by using an appropriate scale. Learn to log exercise and discussed fitness Apps like FUELUP which can help keep log off calories taken versus calories burned. Local food should be preferred. Discussed Dirty Dozen Versus Clean Fifteen. Discussed healthy supplements like fish oil, Tumeric, Curcumin, Melatonin, Resveratrol, Probiotics, Vitamin-D, Alpha-Lipoic acid, Vitamin-D and coconut oil. 2. It is important to exercise regularly. Is a good habit to walk at least 30-45 minutes a day. Gentle weightlifting with standard precautions to protect the back. Finding activity like cycling or hiking and get into the habit of engaging in it. Stretching before and after the exercises important. It is also important to contact me if there are any problems like shortness of breath, chest pain, back pain and joint or muscle pain associated with the exercise. 3. Discussed age appropriate screening guidelines. Colonoscopy needs to start at age 50 with stool for occult blood as appropriate. There is a new test that can test for genetic abnormalities in the stool sample. This would not replace a colonoscopy but could be used as a screening tool for patients who do not want a colonoscopy. We discussed the importance of early detection of colon cancer. 4. Discussed current PSA screening. PSA screening can be done in most patients between age 50 and 65. However early detection of prostate cancer needs to carefully be balanced with complications with treatment. These include incontinence, impotence etc. Each patient should decide if they would like to have this test. 5. Discussed safe driving and no use of smart phone while driving 6. Age-appropriate immunizations were discussed. A tetanus booster is needed every 10 years. Flu vaccine is recommended every year just before the start of the flu season. Shingles vaccine is recommended after age 50 but not all insurances cover it. Pneumonia vaccine is given after age 65 unless there are certain comorbidities for which it is started earlier. 7. Diagnostic labs were discussed. These could include CBC CMP and lipids with fasting blood glucose and insulin levels. Vitamin D and hemoglobin A1c testing might be appropriate. 8. Patient's daughter will get him to have flu and RSV vaccine. He will need shingles vaccine in the summer. He he will need activities of daily living monitored along with kidney function and sodium levels. He has been advised to keep his Lifeline on which she was not wearing today. He will follow-up for physical in 4 months 01/02/2025 Chronic anticoagulation (ICD-10 - Z79.01) Iam is a 84-year-old male present today for follow-up. #Up-to-date on Medicare wellness visit 08/2024. # Vaccines: Up-to-date on influenza, RSV and shingles. #Chronic tinnitus: Patient reports chronic buzzing sound in his ears. Followed by neurology. Unfortunately no further treatment. #Paroxysmal A-fib: On anticoagulation of Eliquis 2.5 mg twice daily. This dose was decreased from 5 mg due to worsening mentation leading to possible falls. Followed by cardiology with last follow-up 02/2024 and next follow-up scheduled 02/2025. Continue diltiazem extended release 120 mg twice daily. #Anxiety #depression: Lost his approximately a year ago. Managed on sertraline 100 mg p.o. once daily and clonazepam as needed. Overall doing well on this medication. #Diabetes: Elevated glucose of 109 with in office A1c of 6.1%. Stable. # CKD stage 3: stable GFR. Will monitor. #BPH: Managed on tamsulosin 0.4 mg p.o. once daily. #Dementia: Followed by neurology every 6 months. Managed on memantine 10 mg twice daily, quetiapine 25 mg at bedtime. #Hypertension: Blood pressure on the softer side, 112/50. Blood pressure has gradually decreased over the past few years after review of vitals. Recommend monitoring blood pressure twice daily at home for the next week and keeping a blood pressure log. Advised lyceitki-mw-ofu to call office in 1 week to review blood pressures. Would consider discontinuing clonazepam due to indirect effect on blood pressure and risk of falls. Would recommend calling cardiology for possible trial of decreasing diltiazem. # Patient lives at home and level with son. Has [employer] elder[employer] services including meals and laundry. Requires assistance with ADLs. No longer driving. Patient has daily repetitive behaviors including checking the mail. Zgeohlfe-wy-wtm states he lacks hobbies and will often times watch TV or nap throughout the day. Denies worsening depression, SI/HI. Jsszdcem-jb-xpx reports cameras outside the house for extra precaution surveillance. Patient stable at this time but will continue to monitor cognitive decline. # Plan to follow-up in 3 months. Will repeat labs. All questions answered to patients satisfaction. Patient verbalized understanding of diagnosis and treatments explained. To call sooner prior to next visit it any questions/concerns arise. Case discussed with collaborating physician Dr. Juarez who reviewed the assessment and plan. Chart, medications, labs, vital signs reviewed. Dictation was accomplished with the use of [employer] voice recognition software, prone to medical misidentifications and grammatical errors. This is unintentional and the practitioner does try to identify and correct these, but some could still be present. Please do not hesitate to contact practitioner for clarification. 04/05/2025 Bilateral tinnitus (ICD-10 - H93.13) Iam is an 85-year-old male present today for follow-up. #Leukocytosis: Most recent labs revealed WBCs of 13.7, absolute neutrophils of 9.7 and absolute monocytes of 1.2. Patient denies any recent upper respiratory infection, acute cough, shortness of breath, recent corticosteroid use, seasonal allergies. Of note patient was seen recently by the pbx inspector in which his sijmexsf-we-awe reports that he was reporting a sore throat. This has since resolved. Denies any fevers. No change in baseline mentation. No medication changes. No changes to urinary stream, no dysuria, urgency or hesitancy. No blood in urine. Lungs clear on auscultation. Patient appears unremarkable on physical exam. Will order blood work to repeat CBC as well as add a urine with reflex culture to rule out UTI, will also add strep pneumo, Legionella and mycoplasma for possible underlying community-acquired pneumonia as source of leukocytosis. Recommend wywmpegt-bd-rru to take patient's temperature daily at home. Cannot rule out leukemia at this time. Has not had any intentional weight loss however has had a 4 pound weight loss since December. Mwauindc-ek-obs states he has had a normal appetite. Recommend monitoring weight at home and calling the office if patient experiences any weight loss, fevers or any new symptoms suggesting infectious etiology. Nifrrsdz-tt-ldr understanding. #CKD: Appears stable. #Tinnitus: Followed by neurology. Seen every 6 months. #Dementia: Memantine 10 mg twice daily and quetiapine 25 at bedtime. #Anxiety: Clonazepam twice daily as needed. #Paroxysmal A-fib: On anticoagulation of Eliquis 2.5 mg twice daily. This dose was decreased from 5 mg due to worsening mentation leading to possible falls. Followed by cardiology with last follow-up 02/2024 and next follow-up scheduled 02/2025. Continue diltiazem extended release 120 mg twice daily. #BPH: Managed on tamsulosin 0.4 mg. # Patient lives at home and level with son. Has [employer] services including meals and laundry. Requires assistance with ADLs. No longer driving. Patient has daily repetitive behaviors including checking the mail. Zlfolfio-jl-dkt states he lacks hobbies and will often times watch TV or nap throughout the day. Denies worsening depression, SI/HI. Cmjxgekc-fu-ulv reports cameras outside the house for extra precaution surveillance. Patient stable at this time but will continue to monitor cognitive decline. # Plan to follow-up in 3 months. Will repeat labs. All questions answered to patients satisfaction. Patient verbalized understanding of diagnosis and treatments explained. To call sooner prior to next visit it any questions/concerns arise. Case discussed with collaborating physician Dr. Juarez who reviewed the assessment and plan. Chart, medications, labs, vital signs reviewed. Dictation was accomplished with the use of [employer] voice recognition software, prone to medical misidentifications and grammatical errors. This is unintentional and the practitioner does try to identify and correct these, but some could still be present. Please do not hesitate to contact practitioner for clarification. 04/05/2025 Stage 3b chronic kidney disease (ICD-10 - N18.32) Iam is an 85-year-old male present today for follow-up. #Leukocytosis: Most recent labs revealed WBCs of 13.7, absolute neutrophils of 9.7 and absolute monocytes of 1.2. Patient denies any recent upper respiratory infection, acute cough, shortness of breath, recent corticosteroid use, seasonal allergies. Of note patient was seen recently by the pbx inspector in which his kldzksbm-qd-qgp reports that he was reporting a sore throat. This has since resolved. Denies any fevers. No change in baseline mentation. No medication changes. No changes to urinary stream, no dysuria, urgency or hesitancy. No blood in urine. Lungs clear on auscultation. Patient appears unremarkable on physical exam. Will order blood work to repeat CBC as well as add a urine with reflex culture to rule out UTI, will also add strep pneumo, Legionella and mycoplasma for possible underlying community-acquired pneumonia as source of leukocytosis. Recommend qfnuijpy-rp-glf to take patient's temperature daily at home. Cannot rule out leukemia at this time. Has not had any intentional weight loss however has had a 4 pound weight loss since December. Xmpdmcgq-lt-txk states he has had a normal appetite. Recommend monitoring weight at home and calling the office if patient experiences any weight loss, fevers or any new symptoms suggesting infectious etiology. Ogvpjuep-td-lzw understanding. #CKD: Appears stable. #Tinnitus: Followed by neurology. Seen every 6 months. #Dementia: Memantine 10 mg twice daily and quetiapine 25 at bedtime. #Anxiety: Clonazepam twice daily as needed. #Paroxysmal A-fib: On anticoagulation of Eliquis 2.5 mg twice daily. This dose was decreased from 5 mg due to worsening mentation leading to possible falls. Followed by cardiology with last follow-up 02/2024 and next follow-up scheduled 02/2025. Continue diltiazem extended release 120 mg twice daily. #BPH: Managed on tamsulosin 0.4 mg. # Patient lives at home and level with son. Has [employer] eldercare services including meals and laundry. Requires assistance with ADLs. No longer driving. Patient has daily repetitive behaviors including checking the mail. Tzgxwmhk-su-fmo states he lacks hobbies and will often times watch TV or nap throughout the day. Denies worsening depression, SI/HI. Resjjjos-wk-rjq reports cameras outside the house for extra precaution surveillance. Patient stable at this time but will continue to monitor cognitive decline. # Plan to follow-up in 3 months. Will repeat labs. All questions answered to patients satisfaction. Patient verbalized understanding of diagnosis and treatments explained. To call sooner prior to next visit it any questions/concerns arise. Case discussed with collaborating physician Dr. Juarez who reviewed the assessment and plan. Chart, medications, labs, vital signs reviewed. Dictation was accomplished with the use of [employer] voice recognition software, prone to medical misidentifications and grammatical errors. This is unintentional and the practitioner does try to identify and correct these, but some could still be present. Please do not hesitate to contact practitioner for clarification. 01/02/2025 Anxiety disorder, unspecified (ICD-10 - F41.9) Iam is a 84-year-old male present today for follow-up. #Up-to-date on Medicare wellness visit 08/2024. # Vaccines: Up-to-date on influenza, RSV and shingles. #Chronic tinnitus: Patient reports chronic buzzing sound in his ears. Followed by neurology. Unfortunately no further treatment. #Paroxysmal A-fib: On anticoagulation of Eliquis 2.5 mg twice daily. This dose was decreased from 5 mg due to worsening mentation leading to possible falls. Followed by cardiology with last follow-up 02/2024 and next follow-up scheduled 02/2025. Continue diltiazem extended release 120 mg twice daily. #Anxiety #depression: Lost his approximately a year ago. Managed on sertraline 100 mg p.o. once daily and clonazepam as needed. Overall doing well on this medication. #Diabetes: Elevated glucose of 109 with in office A1c of 6.1%. Stable. # CKD stage 3: stable GFR. Will monitor. #BPH: Managed on tamsulosin 0.4 mg p.o. once daily. #Dementia: Followed by neurology every 6 months. Managed on memantine 10 mg twice daily, quetiapine 25 mg at bedtime. #Hypertension: Blood pressure on the softer side, 112/50. Blood pressure has gradually decreased over the past few years after review of vitals. Recommend monitoring blood pressure twice daily at home for the next week and keeping a blood pressure log. Advised iyqygdji-td-exg to call office in 1 week to review blood pressures. Would consider discontinuing clonazepam due to indirect effect on blood pressure and risk of falls. Would recommend calling cardiology for possible trial of decreasing diltiazem. # Patient lives at home and level with son. Has [employer] elder[employer] services including meals and laundry. Requires assistance with ADLs. No longer driving. Patient has daily repetitive behaviors including checking the mail. Hdnzlgye-xo-emm states he lacks hobbies and will often times watch TV or nap throughout the day. Denies worsening depression, SI/HI. Ueuyjkzu-yt-xlj reports cameras outside the house for extra precaution surveillance. Patient stable at this time but will continue to monitor cognitive decline. # Plan to follow-up in 3 months. Will repeat labs. All questions answered to patients satisfaction. Patient verbalized understanding of diagnosis and treatments explained. To call sooner prior to next visit it any questions/concerns arise. Case discussed with collaborating physician Dr. Juarez who reviewed the assessment and plan. Chart, medications, labs, vital signs reviewed. Dictation was accomplished with the use of [employer] voice recognition software, prone to medical misidentifications and grammatical errors. This is unintentional and the practitioner does try to identify and correct these, but some could still be present. Please do not hesitate to contact practitioner for clarification. 01/02/2025 Depression, unspecified (ICD-10 - F32.A) Iam is a 84-year-old male present today for follow-up. #Up-to-date on Medicare wellness visit 08/2024. # Vaccines: Up-to-date on influenza, RSV and shingles. #Chronic tinnitus: Patient reports chronic buzzing sound in his ears. Followed by neurology. Unfortunately no further treatment. #Paroxysmal A-fib: On anticoagulation of Eliquis 2.5 mg twice daily. This dose was decreased from 5 mg due to worsening mentation leading to possible falls. Followed by cardiology with last follow-up 02/2024 and next follow-up scheduled 02/2025. Continue diltiazem extended release 120 mg twice daily. #Anxiety #depression: Lost his approximately a year ago. Managed on sertraline 100 mg p.o. once daily and clonazepam as needed. Overall doing well on this medication. #Diabetes: Elevated glucose of 109 with in office A1c of 6.1%. Stable. # CKD stage 3: stable GFR. Will monitor. #BPH: Managed on tamsulosin 0.4 mg p.o. once daily. #Dementia: Followed by neurology every 6 months. Managed on memantine 10 mg twice daily, quetiapine 25 mg at bedtime. #Hypertension: Blood pressure on the softer side, 112/50. Blood pressure has gradually decreased over the past few years after review of vitals. Recommend monitoring blood pressure twice daily at home for the next week and keeping a blood pressure log. Advised qtjyslvi-wj-uoj to call office in 1 week to review blood pressures. Would consider discontinuing clonazepam due to indirect effect on blood pressure and risk of falls. Would recommend calling cardiology for possible trial of decreasing diltiazem. # Patient lives at home and level with son. Has [employer] elder[employer] services including meals and laundry. Requires assistance with ADLs. No longer driving. Patient has daily repetitive behaviors including checking the mail. Bfvfllyl-fb-nyu states he lacks hobbies and will often times watch TV or nap throughout the day. Denies worsening depression, SI/HI. Xnjbvhtz-je-pca reports cameras outside the house for extra precaution surveillance. Patient stable at this time but will continue to monitor cognitive decline. # Plan to follow-up in 3 months. Will repeat labs. All questions answered to patients satisfaction. Patient verbalized understanding of diagnosis and treatments explained. To call sooner prior to next visit it any questions/concerns arise. Case discussed with collaborating physician Dr. Juarez who reviewed the assessment and plan. Chart, medications, labs, vital signs reviewed. Dictation was accomplished with the use of [employer] voice recognition software, prone to medical misidentifications and grammatical errors. This is unintentional and the practitioner does try to identify and correct these, but some could still be present. Please do not hesitate to contact practitioner for clarification. 04/05/2025 Anxiety, generalized (ICD-10 - F41.1) Iam is an 85-year-old male present today for follow-up. #Leukocytosis: Most recent labs revealed WBCs of 13.7, absolute neutrophils of 9.7 and absolute monocytes of 1.2. Patient denies any recent upper respiratory infection, acute cough, shortness of breath, recent corticosteroid use, seasonal allergies. Of note patient was seen recently by the pbx inspector in which his dfnqlbjb-eh-aoy reports that he was reporting a sore throat. This has since resolved. Denies any fevers. No change in baseline mentation. No medication changes. No changes to urinary stream, no dysuria, urgency or hesitancy. No blood in urine. Lungs clear on auscultation. Patient appears unremarkable on physical exam. Will order blood work to repeat CBC as well as add a urine with reflex culture to rule out UTI, will also add strep pneumo, Legionella and mycoplasma for possible underlying community-acquired pneumonia as source of leukocytosis. Recommend tlfeutig-ad-ljh to take patient's temperature daily at home. Cannot rule out leukemia at this time. Has not had any intentional weight loss however has had a 4 pound weight loss since December. Jxvtkcod-ye-gcc states he has had a normal appetite. Recommend monitoring weight at home and calling the office if patient experiences any weight loss, fevers or any new symptoms suggesting infectious etiology. Nrgjpvcn-rm-anp understanding. #CKD: Appears stable. #Tinnitus: Followed by neurology. Seen every 6 months. #Dementia: Memantine 10 mg twice daily and quetiapine 25 at bedtime. #Anxiety: Clonazepam twice daily as needed. #Paroxysmal A-fib: On anticoagulation of Eliquis 2.5 mg twice daily. This dose was decreased from 5 mg due to worsening mentation leading to possible falls. Followed by cardiology with last follow-up 02/2024 and next follow-up scheduled 02/2025. Continue diltiazem extended release 120 mg twice daily. #BPH: Managed on tamsulosin 0.4 mg. # Patient lives at home and level with son. Has [facility] eldercare services including meals and laundry. Requires assistance with ADLs. No longer driving. Patient has daily repetitive behaviors including checking the mail. Rtxnabbf-sd-bqj states he lacks hobbies and will often times watch TV or nap throughout the day. Denies worsening depression, SI/HI. Gaxuxbow-zp-wrw reports cameras outside the house for extra precaution surveillance. Patient stable at this time but will continue to monitor cognitive decline. # Plan to follow-up in 3 months. Will repeat labs. All questions answered to patients satisfaction. Patient verbalized understanding of diagnosis and treatments explained. To call sooner prior to next visit it any questions/concerns arise. Case discussed with collaborating physician Dr. Juarez who reviewed the assessment and plan. Chart, medications, labs, vital signs reviewed. Dictation was accomplished with the use of [employer] voice recognition software, prone to medical misidentifications and grammatical errors. This is unintentional and the practitioner does try to identify and correct these, but some could still be present. Please do not hesitate to contact practitioner for clarification. 04/05/2025 BPH without urinary obstruction (ICD-10 - N40.0) Iam is an 85-year-old male present today for follow-up. #Leukocytosis: Most recent labs revealed WBCs of 13.7, absolute neutrophils of 9.7 and absolute monocytes of 1.2. Patient denies any recent upper respiratory infection, acute cough, shortness of breath, recent corticosteroid use, seasonal allergies. Of note patient was seen recently by the pbx inspector in which his ttggbmcp-gr-ouu reports that he was reporting a sore throat. This has since resolved. Denies any fevers. No change in baseline mentation. No medication changes. No changes to urinary stream, no dysuria, urgency or hesitancy. No blood in urine. Lungs clear on auscultation. Patient appears unremarkable on physical exam. Will order blood work to repeat CBC as well as add a urine with reflex culture to rule out UTI, will also add strep pneumo, Legionella and mycoplasma for possible underlying community-acquired pneumonia as source of leukocytosis. Recommend geuqamvu-ty-hnl to take patient's temperature daily at home. Cannot rule out leukemia at this time. Has not had any intentional weight loss however has had a 4 pound weight loss since December. Jypyxghq-kf-anq states he has had a normal appetite. Recommend monitoring weight at home and calling the office if patient experiences any weight loss, fevers or any new symptoms suggesting infectious etiology. Nqwbsejd-xp-hzn understanding. #CKD: Appears stable. #Tinnitus: Followed by neurology. Seen every 6 months. #Dementia: Memantine 10 mg twice daily and quetiapine 25 at bedtime. #Anxiety: Clonazepam twice daily as needed. #Paroxysmal A-fib: On anticoagulation of Eliquis 2.5 mg twice daily. This dose was decreased from 5 mg due to worsening mentation leading to possible falls. Followed by cardiology with last follow-up 02/2024 and next follow-up scheduled 02/2025. Continue diltiazem extended release 120 mg twice daily. #BPH: Managed on tamsulosin 0.4 mg. # Patient lives at home and level with son. Has [employer] services including meals and laundry. Requires assistance with ADLs. No longer driving. Patient has daily repetitive behaviors including checking the mail. Amonyplo-qr-ilr states he lacks hobbies and will often times watch TV or nap throughout the day. Denies worsening depression, SI/HI. Emohdvyg-ir-cia reports cameras outside the house for extra precaution surveillance. Patient stable at this time but will continue to monitor cognitive decline. # Plan to follow-up in 3 months. Will repeat labs. All questions answered to patients satisfaction. Patient verbalized understanding of diagnosis and treatments explained. To call sooner prior to next visit it any questions/concerns arise. Case discussed with collaborating physician Dr. Juarez who reviewed the assessment and plan. Chart, medications, labs, vital signs reviewed. Dictation was accomplished with the use of [employer] voice recognition software, prone to medical misidentifications and grammatical errors. This is unintentional and the practitioner does try to identify and correct these, but some could still be present. Please do not hesitate to contact practitioner for clarification. 01/02/2025 Type 2 diabetes mellitus without complication, without long-term current use of insulin (ICD-10 - E11.9) Iam is a 84-year-old male present today for follow-up. #Up-to-date on Medicare wellness visit 08/2024. # Vaccines: Up-to-date on influenza, RSV and shingles. #Chronic tinnitus: Patient reports chronic buzzing sound in his ears. Followed by neurology. Unfortunately no further treatment. #Paroxysmal A-fib: On anticoagulation of Eliquis 2.5 mg twice daily. This dose was decreased from 5 mg due to worsening mentation leading to possible falls. Followed by cardiology with last follow-up 02/2024 and next follow-up scheduled 02/2025. Continue diltiazem extended release 120 mg twice daily. #Anxiety #depression: Lost his approximately a year ago. Managed on sertraline 100 mg p.o. once daily and clonazepam as needed. Overall doing well on this medication. #Diabetes: Elevated glucose of 109 with in office A1c of 6.1%. Stable. # CKD stage 3: stable GFR. Will monitor. #BPH: Managed on tamsulosin 0.4 mg p.o. once daily. #Dementia: Followed by neurology every 6 months. Managed on memantine 10 mg twice daily, quetiapine 25 mg at bedtime. #Hypertension: Blood pressure on the softer side, 112/50. Blood pressure has gradually decreased over the past few years after review of vitals. Recommend monitoring blood pressure twice daily at home for the next week and keeping a blood pressure log. Advised igpthoqj-ii-otu to call office in 1 week to review blood pressures. Would consider discontinuing clonazepam due to indirect effect on blood pressure and risk of falls. Would recommend calling cardiology for possible trial of decreasing diltiazem. # Patient lives at home and level with son. Has [employer] services including meals and laundry. Requires assistance with ADLs. No longer driving. Patient has daily repetitive behaviors including checking the mail. Nvynhuwy-xm-rih states he lacks hobbies and will often times watch TV or nap throughout the day. Denies worsening depression, SI/HI. Qhpzlczo-xv-kuo reports cameras outside the house for extra precaution surveillance. Patient stable at this time but will continue to monitor cognitive decline. # Plan to follow-up in 3 months. Will repeat labs. All questions answered to patients satisfaction. Patient verbalized understanding of diagnosis and treatments explained. To call sooner prior to next visit it any questions/concerns arise. Case discussed with collaborating physician Dr. Juarez who reviewed the assessment and plan. Chart, medications, labs, vital signs reviewed. Dictation was accomplished with the use of [employer] voice recognition software, prone to medical misidentifications and grammatical errors. This is unintentional and the practitioner does try to identify and correct these, but some could still be present. Please do not hesitate to contact practitioner for clarification. 01/02/2025 Stage 3a chronic kidney disease (ICD-10 - N18.31) Iam is a 84-year-old male present today for follow-up. #Up-to-date on Medicare wellness visit 08/2024. # Vaccines: Up-to-date on influenza, RSV and shingles. #Chronic tinnitus: Patient reports chronic buzzing sound in his ears. Followed by neurology. Unfortunately no further treatment. #Paroxysmal A-fib: On anticoagulation of Eliquis 2.5 mg twice daily. This dose was decreased from 5 mg due to worsening mentation leading to possible falls. Followed by cardiology with last follow-up 02/2024 and next follow-up scheduled 02/2025. Continue diltiazem extended release 120 mg twice daily. #Anxiety #depression: Lost his approximately a year ago. Managed on sertraline 100 mg p.o. once daily and clonazepam as needed. Overall doing well on this medication. #Diabetes: Elevated glucose of 109 with in office A1c of 6.1%. Stable. # CKD stage 3: stable GFR. Will monitor. #BPH: Managed on tamsulosin 0.4 mg p.o. once daily. #Dementia: Followed by neurology every 6 months. Managed on memantine 10 mg twice daily, quetiapine 25 mg at bedtime. #Hypertension: Blood pressure on the softer side, 112/50. Blood pressure has gradually decreased over the past few years after review of vitals. Recommend monitoring blood pressure twice daily at home for the next week and keeping a blood pressure log. Advised czjyrbka-xv-nhc to call office in 1 week to review blood pressures. Would consider discontinuing clonazepam due to indirect effect on blood pressure and risk of falls. Would recommend calling cardiology for possible trial of decreasing diltiazem. # Patient lives at home and level with son. Has [employer] services including meals and laundry. Requires assistance with ADLs. No longer driving. Patient has daily repetitive behaviors including checking the mail. Cfttrqhf-rt-ruj states he lacks hobbies and will often times watch TV or nap throughout the day. Denies worsening depression, SI/HI. Qrxfbwte-km-wct reports cameras outside the house for extra precaution surveillance. Patient stable at this time but will continue to monitor cognitive decline. # Plan to follow-up in 3 months. Will repeat labs. All questions answered to patients satisfaction. Patient verbalized understanding of diagnosis and treatments explained. To call sooner prior to next visit it any questions/concerns arise. Case discussed with collaborating physician Dr. Juarez who reviewed the assessment and plan. Chart, medications, labs, vital signs reviewed. Dictation was accomplished with the use of [employer] voice recognition software, prone to medical misidentifications and grammatical errors. This is unintentional and the practitioner does try to identify and correct these, but some could still be present. Please do not hesitate to contact practitioner for clarification. 04/05/2025 Encounter for examination of blood pressure without abnormal findings (ICD-10 - Z01.30) Iam is an 85-year-old male present today for follow-up. #Leukocytosis: Most recent labs revealed WBCs of 13.7, absolute neutrophils of 9.7 and absolute monocytes of 1.2. Patient denies any recent upper respiratory infection, acute cough, shortness of breath, recent corticosteroid use, seasonal allergies. Of note patient was seen recently by the pbx inspector in which his mrfxziyo-jm-kwu reports that he was reporting a sore throat. This has since resolved. Denies any fevers. No change in baseline mentation. No medication changes. No changes to urinary stream, no dysuria, urgency or hesitancy. No blood in urine. Lungs clear on auscultation. Patient appears unremarkable on physical exam. Will order blood work to repeat CBC as well as add a urine with reflex culture to rule out UTI, will also add strep pneumo, Legionella and mycoplasma for possible underlying community-acquired pneumonia as source of leukocytosis. Recommend rqybqwdf-av-jal to take patient's temperature daily at home. Cannot rule out leukemia at this time. Has not had any intentional weight loss however has had a 4 pound weight loss since December. Ekdpkaxi-nw-sra states he has had a normal appetite. Recommend monitoring weight at home and calling the office if patient experiences any weight loss, fevers or any new symptoms suggesting infectious etiology. Gfokthtu-hp-kag understanding. #CKD: Appears stable. #Tinnitus: Followed by neurology. Seen every 6 months. #Dementia: Memantine 10 mg twice daily and quetiapine 25 at bedtime. #Anxiety: Clonazepam twice daily as needed. #Paroxysmal A-fib: On anticoagulation of Eliquis 2.5 mg twice daily. This dose was decreased from 5 mg due to worsening mentation leading to possible falls. Followed by cardiology with last follow-up 02/2024 and next follow-up scheduled 02/2025. Continue diltiazem extended release 120 mg twice daily. #BPH: Managed on tamsulosin 0.4 mg. # Patient lives at home and level with son. Has [employer] eldercare services including meals and laundry. Requires assistance with ADLs. No longer driving. Patient has daily repetitive behaviors including checking the mail. Roonnpol-xa-fdw states he lacks hobbies and will often times watch TV or nap throughout the day. Denies worsening depression, SI/HI. Wlslsdyz-fo-zwl reports cameras outside the house for extra precaution surveillance. Patient stable at this time but will continue to monitor cognitive decline. # Plan to follow-up in 3 months. Will repeat labs. All questions answered to patients satisfaction. Patient verbalized understanding of diagnosis and treatments explained. To call sooner prior to next visit it any questions/concerns arise. Case discussed with collaborating physician Dr. Juarez who reviewed the assessment and plan. Chart, medications, labs, vital signs reviewed. Dictation was accomplished with the use of [employer] voice recognition software, prone to medical misidentifications and grammatical errors. This is unintentional and the practitioner does try to identify and correct these, but some could still be present. Please do not hesitate to contact practitioner for clarification. 01/02/2025 BPH without urinary obstruction (ICD-10 - N40.0) Iam is a 84-year-old male present today for follow-up. #Up-to-date on Medicare wellness visit 08/2024. # Vaccines: Up-to-date on influenza, RSV and shingles. #Chronic tinnitus: Patient reports chronic buzzing sound in his ears. Followed by neurology. Unfortunately no further treatment. #Paroxysmal A-fib: On anticoagulation of Eliquis 2.5 mg twice daily. This dose was decreased from 5 mg due to worsening mentation leading to possible falls. Followed by cardiology with last follow-up 02/2024 and next follow-up scheduled 02/2025. Continue diltiazem extended release 120 mg twice daily. #Anxiety #depression: Lost his approximately a year ago. Managed on sertraline 100 mg p.o. once daily and clonazepam as needed. Overall doing well on this medication. #Diabetes: Elevated glucose of 109 with in office A1c of 6.1%. Stable. # CKD stage 3: stable GFR. Will monitor. #BPH: Managed on tamsulosin 0.4 mg p.o. once daily. #Dementia: Followed by neurology every 6 months. Managed on memantine 10 mg twice daily, quetiapine 25 mg at bedtime. #Hypertension: Blood pressure on the softer side, 112/50. Blood pressure has gradually decreased over the past few years after review of vitals. Recommend monitoring blood pressure twice daily at home for the next week and keeping a blood pressure log. Advised bpvyywtn-ke-ynl to call office in 1 week to review blood pressures. Would consider discontinuing clonazepam due to indirect effect on blood pressure and risk of falls. Would recommend calling cardiology for possible trial of decreasing diltiazem. # Patient lives at home and level with son. Has [employer] services including meals and laundry. Requires assistance with ADLs. No longer driving. Patient has daily repetitive behaviors including checking the mail. Agtvpsim-cg-fnz states he lacks hobbies and will often times watch TV or nap throughout the day. Denies worsening depression, SI/HI. Fwtduixu-cp-htn reports cameras outside the house for extra precaution surveillance. Patient stable at this time but will continue to monitor cognitive decline. # Plan to follow-up in 3 months. Will repeat labs. All questions answered to patients satisfaction. Patient verbalized understanding of diagnosis and treatments explained. To call sooner prior to next visit it any questions/concerns arise. Case discussed with collaborating physician Dr. Juarez who reviewed the assessment and plan. Chart, medications, labs, vital signs reviewed. Dictation was accomplished with the use of [employer] voice recognition software, prone to medical misidentifications and grammatical errors. This is unintentional and the practitioner does try to identify and correct these, but some could still be present. Please do not hesitate to contact practitioner for clarification. 01/02/2025 Advancing dementia (ICD-10 - F03.90) Iam is a 84-year-old male present today for follow-up. #Up-to-date on Medicare wellness visit 08/2024. # Vaccines: Up-to-date on influenza, RSV and shingles. #Chronic tinnitus: Patient reports chronic buzzing sound in his ears. Followed by neurology. Unfortunately no further treatment. #Paroxysmal A-fib: On anticoagulation of Eliquis 2.5 mg twice daily. This dose was decreased from 5 mg due to worsening mentation leading to possible falls. Followed by cardiology with last follow-up 02/2024 and next follow-up scheduled 02/2025. Continue diltiazem extended release 120 mg twice daily. #Anxiety #depression: Lost his approximately a year ago. Managed on sertraline 100 mg p.o. once daily and clonazepam as needed. Overall doing well on this medication. #Diabetes: Elevated glucose of 109 with in office A1c of 6.1%. Stable. # CKD stage 3: stable GFR. Will monitor. #BPH: Managed on tamsulosin 0.4 mg p.o. once daily. #Dementia: Followed by neurology every 6 months. Managed on memantine 10 mg twice daily, quetiapine 25 mg at bedtime. #Hypertension: Blood pressure on the softer side, 112/50. Blood pressure has gradually decreased over the past few years after review of vitals. Recommend monitoring blood pressure twice daily at home for the next week and keeping a blood pressure log. Advised fwexasvq-ts-yzr to call office in 1 week to review blood pressures. Would consider discontinuing clonazepam due to indirect effect on blood pressure and risk of falls. Would recommend calling cardiology for possible trial of decreasing diltiazem. # Patient lives at home and level with son. Has [employer] services including meals and laundry. Requires assistance with ADLs. No longer driving. Patient has daily repetitive behaviors including checking the mail. Wpctiszg-eh-oxp states he lacks hobbies and will often times watch TV or nap throughout the day. Denies worsening depression, SI/HI. Mizyfjhe-ay-qpm reports cameras outside the house for extra precaution surveillance. Patient stable at this time but will continue to monitor cognitive decline. # Plan to follow-up in 3 months. Will repeat labs. All questions answered to patients satisfaction. Patient verbalized understanding of diagnosis and treatments explained. To call sooner prior to next visit it any questions/concerns arise. Case discussed with collaborating physician Dr. Juarez who reviewed the assessment and plan. Chart, medications, labs, vital signs reviewed. Dictation was accomplished with the use of [employer] voice recognition software, prone to medical misidentifications and grammatical errors. This is unintentional and the practitioner does try to identify and correct these, but some could still be present. Please do not hesitate to contact practitioner for clarification. 01/02/2025 Essential hypertension (ICD-10 - I10) Iam is a 84-year-old male present today for follow-up. #Up-to-date on Medicare wellness visit 08/2024. # Vaccines: Up-to-date on influenza, RSV and shingles. #Chronic tinnitus: Patient reports chronic buzzing sound in his ears. Followed by neurology. Unfortunately no further treatment. #Paroxysmal A-fib: On anticoagulation of Eliquis 2.5 mg twice daily. This dose was decreased from 5 mg due to worsening mentation leading to possible falls. Followed by cardiology with last follow-up 02/2024 and next follow-up scheduled 02/2025. Continue diltiazem extended release 120 mg twice daily. #Anxiety #depression: Lost his approximately a year ago. Managed on sertraline 100 mg p.o. once daily and clonazepam as needed. Overall doing well on this medication. #Diabetes: Elevated glucose of 109 with in office A1c of 6.1%. Stable. # CKD stage 3: stable GFR. Will monitor. #BPH: Managed on tamsulosin 0.4 mg p.o. once daily. #Dementia: Followed by neurology every 6 months. Managed on memantine 10 mg twice daily, quetiapine 25 mg at bedtime. #Hypertension: Blood pressure on the softer side, 112/50. Blood pressure has gradually decreased over the past few years after review of vitals. Recommend monitoring blood pressure twice daily at home for the next week and keeping a blood pressure log. Advised kgufqtdf-pw-hsv to call office in 1 week to review blood pressures. Would consider discontinuing clonazepam due to indirect effect on blood pressure and risk of falls. Would recommend calling cardiology for possible trial of decreasing diltiazem. # Patient lives at home and level with son. Has [employer] services including meals and laundry. Requires assistance with ADLs. No longer driving. Patient has daily repetitive behaviors including checking the mail. Syyyinhl-bw-dab states he lacks hobbies and will often times watch TV or nap throughout the day. Denies worsening depression, SI/HI. Uzrpuskn-dt-kgz reports cameras outside the house for extra precaution surveillance. Patient stable at this time but will continue to monitor cognitive decline. # Plan to follow-up in 3 months. Will repeat labs. All questions answered to patients satisfaction. Patient verbalized understanding of diagnosis and treatments explained. To call sooner prior to next visit it any questions/concerns arise. Case discussed with collaborating physician Dr. Juarez who reviewed the assessment and plan. Chart, medications, labs, vital signs reviewed. Dictation was accomplished with the use of [employer] voice recognition software, prone to medical misidentifications and grammatical errors. This is unintentional and the practitioner does try to identify and correct these, but some could still be present. Please do not hesitate to contact practitioner for clarification. 01/02/2025 Encounter for examination of blood pressure with abnormal findings (ICD-10 - Z01.31) Iam is a 84-year-old male present today for follow-up. #Up-to-date on Medicare wellness visit 08/2024. # Vaccines: Up-to-date on influenza, RSV and shingles. #Chronic tinnitus: Patient reports chronic buzzing sound in his ears. Followed by neurology. Unfortunately no further treatment. #Paroxysmal A-fib: On anticoagulation of Eliquis 2.5 mg twice daily. This dose was decreased from 5 mg due to worsening mentation leading to possible falls. Followed by cardiology with last follow-up 02/2024 and next follow-up scheduled 02/2025. Continue diltiazem extended release 120 mg twice daily. #Anxiety #depression: Lost his approximately a year ago. Managed on sertraline 100 mg p.o. once daily and clonazepam as needed. Overall doing well on this medication. #Diabetes: Elevated glucose of 109 with in office A1c of 6.1%. Stable. # CKD stage 3: stable GFR. Will monitor. #BPH: Managed on tamsulosin 0.4 mg p.o. once daily. #Dementia: Followed by neurology every 6 months. Managed on memantine 10 mg twice daily, quetiapine 25 mg at bedtime. #Hypertension: Blood pressure on the softer side, 112/50. Blood pressure has gradually decreased over the past few years after review of vitals. Recommend monitoring blood pressure twice daily at home for the next week and keeping a blood pressure log. Advised ebfhczfe-fv-ncf to call office in 1 week to review blood pressures. Would consider discontinuing clonazepam due to indirect effect on blood pressure and risk of falls. Would recommend calling cardiology for possible trial of decreasing diltiazem. # Patient lives at home and level with son. Has [employer] services including meals and laundry. Requires assistance with ADLs. No longer driving. Patient has daily repetitive behaviors including checking the mail. Bjfqsehe-ki-izz states he lacks hobbies and will often times watch TV or nap throughout the day. Denies worsening depression, SI/HI. Drpiyxcc-rk-fna reports cameras outside the house for extra precaution surveillance. Patient stable at this time but will continue to monitor cognitive decline. # Plan to follow-up in 3 months. Will repeat labs. All questions answered to patients satisfaction. Patient verbalized understanding of diagnosis and treatments explained. To call sooner prior to next visit it any questions/concerns arise. Case discussed with collaborating physician Dr. Juarez who reviewed the assessment and plan. Chart, medications, labs, vital signs reviewed. Dictation was accomplished with the use of [employer] voice recognition software, prone to medical misidentifications and grammatical errors. This is unintentional and the practitioner does try to identify and correct these, but some could still be present. Please do not hesitate to contact practitioner for clarification. Plan Of Treatment Pending Test Test Name Order Date Mycoplasma pneu. IgG/IgM Abs 04/05/2025 Comp. Metabolic Panel (14) 01/20/2019 CBC 01/20/2019 Urinalysis 01/20/2019 25 HYDROXY VITAMIN D2 D3 09/27/2019 CBC (COMPLETE BLOOD COUNT) 09/27/2019 CBC (COMPLETE BLOOD COUNT) 07/19/2018 CBC (COMPLETE BLOOD COUNT) 08/12/2018 CBC (COMPLETE BLOOD COUNT) 10/09/2020 COMPREHENSIVE METABOLIC PANEL 09/27/2019 COMPREHENSIVE METABOLIC PANEL 08/12/2018 COMPREHENSIVE METABOLIC PANEL 07/19/2018 CRP, HIGH SENSITIVITY 04/05/2025 LEGIONELLA ANTIBODY 04/05/2025 LIPID PANEL 08/12/2018 LIPID PANEL 07/19/2018 STREP PNEUMONIAE ANTIGEN, URINE 04/05/20 25 T4, FREE 09/27/2019 TSH 09/27/2019 URINALYSIS, COMPLETE 07/19/2018 URINALYSIS, COMPLETE 10/09/2020 VITAMIN B12 09/27/2019 LIPID PANEL, STANDARD 05/23/2022 LIPID PANEL, STANDARD 03/02/2023 LIPID PANEL, STANDARD 09/14/2023 COMPREHENSIVE METABOLIC PANEL 09/14/2023 COMPREHENSIVE METABOLIC PANEL 03/02/2023 COMPREHENSIVE METABOLIC PANEL 09/05/2024 COMPREHENSIVE METABOLIC PANEL 05/23/2022 COMPREHENSIVE METABOLIC PANEL 01/02/2025 CBC (INCLUDES DIFF/PLT) 01/02/2025 CBC (INCLUDES DIFF/PLT) 04/05/2025 CBC (INCLUDES DIFF/PLT) 05/23/2022 CBC (INCLUDES DIFF/PLT) 09/05/2024 CBC (INCLUDES DIFF/PLT) 03/02/2023 CBC (INCLUDES DIFF/PLT) 09/14/2023 URINALYSIS, COMPLETE 03/02/2023 URINALYSIS, COMPLETE 09/14/2023 URINALYSIS, COMPLETE W/REFLEX TO CULTURE 04/05/2025 HEMOGLOBIN A1c 04/05/2025 HEMOGLOBIN A1c 03/02/2023 VITAMIN D,25-OH,TOTAL,IA 03/02/2023 Hemoglobin [id number] 04/05/2025 CBC With Differential/Platelet-[id number] C-Reactive Protein, Cardiac-[id number] 04/05 Mycoplasma pneu. IgG/IgM Abs-[id number] 03/24 Next Appt Details Provider Name:CESAR MCDONNELL, 07/05/2025 11:30:00 AM, [address], [place], [address], Insurance Providers Payer Name Payer Address Payer Phone Subscriber Number Group Number Insured Name Patient Relationship to Insured Coverage Start Date Coverage End Date Medicare Part B J14 [address] [place] [id number] IAM MESSER Self - patient is the insured 7 [facility] and [facility] [address] [place] [address] [phone] [id number] IAM MESSER Self - patient is the insured Medical (General) History Medical History History ICD Code hypertension hyperlipidemia diabetes mellitus anxiety depression hearing loss meningioma CKD stage 3
--- OUTSIDE RECORDS SUMMARY | 2025-04-12 13:17 | XMS_ITS ---
Author Name [facility] Organization Unknown Encounters Encounter Type Encounter Reason Primary Diagnosis Location Date Ambulatory [facility] 06/21/2024 Care Team Organization Name Specialty Phone Email Start Date End Da te [facility] 12/29/2022
== END 2025-04-12 12:59 | disposition home or self-care (01) ==
LOC: HO.HSM 12:18
PROVIDERS: PCP Internal Medicine; Referring Provider Internal Medicine; Visit Provider Registered Nurse
DX: G30.9 Alzheimer's disease, unspecified (principal); F02.80 Dementia in other diseases classified elsewhere, unspecified severity, without behavioral disturbance, psychotic disturbance, mood disturbance, and anxiety; H93.19 Tinnitus, unspecified ear; D32.9 Benign neoplasm of meninges, unspecified
CPT/HCPCS: 99214

== ENCOUNTER → 2025-04-12 12:17 | Outpatient (BNVA) | payer MEDICARE, BC, SELFPAY | PROVIDERS: PCP Internal Medicine; Referring Provider Internal Medicine; Visit Provider Registered Nurse | DX: G30.9 Alzheimer's disease, unspecified (principal); F02.80 Dementia in other diseases classified elsewhere, unspecified severity, without behavioral disturbance, psychotic disturbance, mood disturbance, and anxiety; H93.19 Tinnitus, unspecified ear; D32.9 Benign neoplasm of meninges, unspecified; Z79.899 Other long term (current) drug therapy | CPT/HCPCS: 99212 ==